=== PATIENT | male | born 1930 | race Caucasian/White ===

== ENCOUNTER 2017-10-09 11:54 | Outpatient (CLI) | payer MEDICARE, OTHER | END 2017-10-09 23:59 | disposition short-term general hospital (02) | LOC: EMS 11:54 | PROVIDERS: ATTEND Surgery | DX: R07.89 Other chest pain (principal) | CPT/HCPCS: A0425; A0427 ==

== ENCOUNTER 2017-10-17 11:40 | Outpatient (CLI) | payer MEDICARE, OTHER ==
[2017-10-17 13:22] LABS: BUN - BLOOD UREA NITROGEN 30 mg/dL (6-20); CARBON DIOXIDE - CO2 34 mmol/L (21-32); CHLORIDE 96 mmol/L (101-111); CREATININE 1.4 mg/dL (0.6-1.2); DIGOXIN 0.6 ng/mL; GFR - MDRD 48 (>89); GLUCOSE 66 mg/dL (70-100); SODIUM 138 mmol/L (135-145)
== END 2017-10-17 11:41 | disposition home or self-care (01) ==
LOC: LAB.R 11:40
PROVIDERS: ATTEND Family Medicine
DX: I50.21 Acute systolic (congestive) heart failure (principal); I48.91 Unspecified atrial fibrillation
CPT/HCPCS: 80048; 80162

== ENCOUNTER 2017-10-26 12:15 | Outpatient (CLI) | payer MEDICARE, OTHER ==
[2017-10-26 17:47] LABS: BILIRUBIN,URINE NEGATIVE (NEGATIVE); GLUCOSE, URINE (UA) NEGATIVE (NEGATIVE); KETONES,URINE (UA) NEGATIVE (NEGATIVE); LEUKOCYTE ESTERASE, URINE MODERATE (NEGATIVE); NITRITE,URINE NEGATIVE (NEGATIVE); OCCULT BLOOD,URINE NEGATIVE (NEGATIVE); PROTEIN,URINE NEGATIVE (NEGATIVE); UROBILINOGEN,URINE 0.2 (NORMAL) E.U./dL (NORMAL)
[2017-10-26 18:03] LABS: CLARITY,URINE CLOUDY (CLEAR)
[2017-10-26 18:16] LABS: BACTERIA,URINE Many /HPF (None Seen); SQUAMOUS EPITHELIAL CELL,UR NONE SEEN (<= Few)
== END 2017-10-26 12:16 | disposition home or self-care (01) ==
LOC: LAB.R 12:15
PROVIDERS: ATTEND Family Medicine
DX: N39.0 Urinary tract infection, site not specified (principal)
CPT/HCPCS: 81001; 81003

== ENCOUNTER 2017-10-31 12:10 | Outpatient (CLI) | payer MEDICARE, OTHER ==
[2017-10-31 13:15] LABS: BILIRUBIN,URINE NEGATIVE (NEGATIVE); GLUCOSE, URINE (UA) NEGATIVE (NEGATIVE); KETONES,URINE (UA) NEGATIVE (NEGATIVE); LEUKOCYTE ESTERASE, URINE LARGE (NEGATIVE); NITRITE,URINE NEGATIVE (NEGATIVE); OCCULT BLOOD,URINE SMALL (NEGATIVE); PROTEIN,URINE TRACE mg/dL (NEGATIVE); UROBILINOGEN,URINE 0.2 (NORMAL) E.U./dL (NORMAL)
[2017-10-31 13:19] LABS: BACTERIA,URINE Moderate /HPF (None Seen); CLARITY,URINE CLOUDY (CLEAR); SQUAMOUS EPITHELIAL CELL,UR NONE SEEN (<= Few)
== END 2017-10-31 12:11 | disposition home or self-care (01) ==
LOC: LAB.R 12:10
PROVIDERS: ATTEND Family Medicine
DX: N39.0 Urinary tract infection, site not specified (principal)
CPT/HCPCS: 81001; 81003; 87077; 87086; 87181

== ENCOUNTER 2018-02-19 08:35 | Outpatient (CLI) | payer MEDICARE, OTHER ==
[2018-02-19 12:22] LABS: CALCIUM 8.9 mg/dL (8.5-10.3); CREATININE 0.9 mg/dL (0.6-1.2)
== END 2018-02-19 08:36 | disposition home or self-care (01) ==
LOC: LAB.F 08:35
PROVIDERS: ATTEND Internal Medicine Cardiovascular Disease
DX: I48.91 Unspecified atrial fibrillation (principal)
CPT/HCPCS: 36415; 80048

== ENCOUNTER 2018-03-17 11:11 | Outpatient (CLI) | payer MEDICARE, OTHER | END 2018-03-17 11:12 | disposition home or self-care (01) | LOC: DI 11:11 | PROVIDERS: ATTEND Internal Medicine Cardiovascular Disease | DX: I50.21 Acute systolic (congestive) heart failure (principal); I08.0 Rheumatic disorders of both mitral and aortic valves; I27.20 Pulmonary hypertension, unspecified; I77.810 Thoracic aortic ectasia | CPT/HCPCS: 93306 ==

== ENCOUNTER 2018-03-25 11:24 | Outpatient (CLI) | payer MEDICARE, OTHER ==
[2018-03-27 15:26] LABS: ALBUMIN 3.6 g/dL (3.8-4.8); ALPHA 1 GLOBULIN 0.4 g/dL (0.2-0.3); ALPHA 2 GLOBULIN 0.8 g/dL (0.5-0.9); BETA 1 GLOBULIN 0.5 g/dL (0.4-0.6); BETA 2 GLOBULIN 0.3 g/dL (0.2-0.5)
== END 2018-03-25 11:25 | disposition home or self-care (01) ==
LOC: LAB 11:24
PROVIDERS: ATTEND Internal Medicine Cardiovascular Disease
DX: I50.21 Acute systolic (congestive) heart failure (principal)
CPT/HCPCS: 36415; 81599; 84155; 84165

== ENCOUNTER 2018-05-05 08:00 | Outpatient (CLI) | payer MEDICARE, OTHER | END 2018-05-05 23:59 | disposition home or self-care (01) | LOC: LAB.R 08:00 | PROVIDERS: ATTEND Internal Medicine Cardiovascular Disease | DX: I50.21 Acute systolic (congestive) heart failure (principal) | CPT/HCPCS: 81599; 82570; 84156; 84166; 86335 ==

== ENCOUNTER 2018-05-05 10:49 | Outpatient (CLI) | payer MEDICARE, OTHER ==
[2018-05-05] MEDS ORDERED: REGADENOSON 0.4 MG/5 ML SYRINGE IVP ONE ×2 (12:21→14:49)
--- NOTE | 2018-05-05 15:26 | Nuclear Medicine Report ---
Reason: CHF, AF Procedure Date: 05/05/2018 Accession Number: [id number] / [id number] Procedure: NM - Myocardial Perfusion STR/RST CPT Code: FULL RESULT: EXAM: SINGLE-ISOTOPE PHARMACOLOGICAL STRESS TEST WITH REGADENOSON. SINGLE-ISOTOPE AND ONE-DAY REST/STRESS MYOCARDIAL PERFUSION SCANS WITH TOMOGRAPHIC IMAGING, QUANTITATIVE ANALYSIS, WALL MOTION ANALYSIS AND CALCULATION OF EJECTION FRACTION. EXAM DATE: 05/05/2018 02:50 PM. CLINICAL HISTORY: CHF, AF. COMPARISON: None available. TECHNIQUE: After the intravenous administration of 9.5 mCi of Tc-99m sestamibi, a rest myocardial perfusion scan was done with tomography. Motion correction was applied when appropriate. After an appropriate delay, pharmacological stress was performed with the infusion of 0.4 mg regadenoson per protocol. According to protocol, 42.3 mCi of Tc-99m sestamibi was injected for stress myocardial perfusion scan. Motion correction was applied when appropriate. Gated tomographic images were obtained for wall motion analysis and computation of left ventricular ejection fraction. FINDINGS: On visual analysis, there is decreased activity in the inferior wall and apex, larger on rest images compared to the stress images. No convincing significant reversible perfusion defects. Computer analysis: Summed stress score 13 Summed rest score 8 Summed difference score 3 Wall motion analysis demonstrates no significant focal wall motion abnormality. The left ventricular end-diastolic volume is 169 cc. The left ventricular end-systolic volume is 99 cc. The left ventricular ejection fraction is calculated to be 41%. IMPRESSION: 1. On visual analysis, defect involving the apex and inferior wall, slightly larger on the rest images compared to the stress images. This could represent diaphragm attenuation artifact versus infarct. No convincing reversible perfusion defects. 2. Abnormal left ventricular ejection fraction of 41%. 3. No significant focal wall motion abnormality. 4. Normal left ventricular cavity size, no change with stress. 5. Based on computer analysis, moderately abnormal exam with mild ischemia. RADIA
--- NOTE | 2018-05-05 16:37 | CARDIAC PROCEDURE NOTE ---
DATE OF SERVICE: 05/05/2018 Physician: Jeanne Thomson MD, LOCATED WITHIN [facility] ORDERING PHYSICIAN: Dr. Blake Henson. INDICATION 1. Congestive heart failure. 2. Atrial fibrillation CARDIAC RISK FACTORS 1. Advanced age. 2. Family history of heart disease. PROCEDURE: After signing informed consent, the patient underwent a Lexiscan pharmaceutical stress test with nuclear myocardial perfusion imaging. Resting heart rate: 71. Peak heart rate: 97 and briefly touched 118. Resting blood pressure: 122/60. Peak blood pressure: 84/50. Recovery blood pressure 128/60. The patient underwent Lexiscan stress test and had brief lightheadedness, flushed feeling, shortness of breath and nausea. The symptoms resolved spontaneously after 5 minutes. RESTING EKG: Atrial fibrillation, left IVCD, LAFB; a PVC and ventricular couplet are seen, non-specific ST-T abnormality in V4 through V6. EKG AT [facility]: No new ST segment or T-wave changes. SUMMARY 1. Abnormal resting EKG. 2. No new changes by EKG criteria on this pharmaceutical stress test. 3. Nuclear images reported separately. TD: 05/05/2018 15:39 MATIAS
== END 2018-05-05 10:50 | disposition home or self-care (01) ==
LOC: DI 10:49
PROVIDERS: ATTEND Internal Medicine Cardiovascular Disease
DX: I50.21 Acute systolic (congestive) heart failure (principal); I48.91 Unspecified atrial fibrillation; Z82.49 Family history of ischemic heart disease and other diseases of the circulatory system; R94.31 Abnormal electrocardiogram [ECG] [EKG]
CPT/HCPCS: 78452; 81599; 82570; 84156; 84166; 86335; 93017; A9500; J2785

== ENCOUNTER 2018-09-27 10:10 | Outpatient (CLI) | payer MEDICARE, OTHER | END 2018-09-27 10:11 | disposition home or self-care (01) | LOC: DI 10:10 | PROVIDERS: ATTEND Internal Medicine Cardiovascular Disease | DX: I50.9 Heart failure, unspecified (principal); I08.0 Rheumatic disorders of both mitral and aortic valves | CPT/HCPCS: 93306 ==

== ENCOUNTER 2020-12-21 15:07 | Outpatient (CLI) | payer MEDICARE, OTHER | END 2020-12-21 15:08 | disposition critical access hospital (66) | LOC: EMS 15:07 | DX: M25.561 Pain in right knee (principal); W01.0XXA Fall on same level from slipping, tripping and stumbling without subsequent striking against object, initial encounter; Y93.89 Activity, other specified; Y92.74 Orchard as the place of occurrence of the external cause | CPT/HCPCS: A0425; A0429 ==

== ENCOUNTER 2020-12-21 15:40 | Emergency (ER) | payer MEDICARE, OTHER ==
[2020-12-21 15:50] VITALS: BP 150/88
--- NOTE | 2020-12-21 15:59 | ED Physician Documentation ---
History of Present Illness - Stated complaint Stated Complaint: FALL - Chief complaint Chief Complaint: Trauma Ext - Additonal information Additional information: 89-year-old male who carries a history of atrial fibrillation (not anticoagula maryam) hypertension presents to the emergency department for evaluation of acute right knee pain. This gentleman reports that he was picking apples and slipped on some rotten apples falling forward onto both of his knees. He had immediate pain in the right knee and an inability to get up. EMS was summoned. Patient did not strike his head. There was no loss of consciousness. He is not complaining of headache, neck pain back pain or pain anywhere other than the right knee. Meds: Lisinopril, metoprolol, Flomax, levothyroxine, digoxin, furosemide, atorvastatin Review of Systems Constitutional: reports: Reviewed and negative Eyes: reports: Reviewed and negative Ears: reports: Reviewed and negative Cardiac: reports: Reviewed and negative Respiratory: reports: Reviewed and negative Musculoskeletal: reports: Joint pain (right knee) PD PAST MEDICAL HISTORY - Past Medical History Cardiovascular: Atrial fibrillation Respiratory: None Neuro: None Endocrine/Autoimmune: HyPOthyroidism GI: GI bleed : None Psych: None Musculoskeletal: None Derm: None - Past Surgical History General: Hiatal hernia repair - Present Medications Home Medications: Ambulatory Orders Medication Instructions Recorded Confirmed Atorvastatin [Lipitor] 40 mg PO DAILY PM 12/24/18 12/24/18 Digoxin [Lanoxin] 125 mcg PO DAILY 12/24/18 12/24/18 Levothyroxine [Synthroid] 50 mcg PO DAILY 12/24/18 12/24/18 Lidocaine Patch 5% [Lidoderm Patch] 1 patch TOP DAILY 12/24/18 12/24/18 Metoprolol Succinate 50 mg PO DAILY 12/24/18 12/24/18 lisinopriL [Lisinopril] 5 mg PO DAILY 12/24/18 12/24/18 - Allergies Allergies/Adverse Reactions: Allergies Allergy/AdvReac Type Severity Reaction Status Date / Time No Known Drug Allergies Allergy Verified 12/21/20 15:48 - Social History Smoking Status: Never smoker PD ED PE EXPANDED - General General: Alert, No acute distress - Cardiac Cardiac: Irregularly irregular, Radial strong equal, Pedal strong equal, Cap refill < 2 sec - Respiratory Respiratory: Clear to ausultation akira. No: Distress, Labored - Derm Derm: Normal color - Extremities Extremities: Right knee (tenderness approximately 2 cm superior to the patella. Unable to extend the right leg at the knee. unable to perform a straight leg raise. Swelling right medial knee. no open sores, lesions) Results - Vitals Vitals: Vital Signs - 24 hr 12/21/20 15:48 Temperature 36.5 C Heart Rate 88 Respiratory 16 Rate Blood Pressure 150/88 H O2 Saturation 98 Oxygen O2 Source Room air - Rads (name of study) right knee Radiology: Final report received, EMP read indepedently (+ patella baja) PD MEDICAL DECISION MAKING - ED course Complexity details: reviewed results, d/w patient, d/w family ED course: 89-year-old gentleman presents emergency department for evaluation of acute right knee pain after he fell while picking apples in his [place]chard. There was no loss of consciousness. He does have a history of atrial fibrillation. He was previously on Eliquis but this has been stopped by his primary care provider. On exam his knee is held in slight flexion but he is unable to straighten the leg or do a positive straight leg exam. He does have point tenderness about 2 cm proximal to the Patella and the x-ray is consistent with a patella Baha confirming a full quadriceps tendon rupture. This case was discussed with Dr. Blanchard on-call with [facility] orthopedics. At this time he should be placed in a knee immobilizer and made nonweightbearing. Due to safety concerns, he was given a walker, not crutches. He was ambulated adequately in the [place]. No falls. Outpatient surgery should be considered. Dr. Blanchard tells me that most [facility] pit[facility] are deferring nonemergent surgery secondary to the Covid pandemic. This gentleman does not need emergent surgery at this time. This case was discussed with licensed clinical social worker. She has arranged with the lift assist to help get the patient home. Patient was placed in a knee immobilizer and will be trialed on crutches or a walker. We have also arranged to help the family get a wheelchair. Departure - Departure Disposition: 01 Home, Self Care Clinical Impression: Traumatic rupture of right quadriceps tendon Qualifiers: Encounter type: initial encounter Qualified Code(s): S76.111A - Strain of right quadriceps muscle, fascia and tendon, initial encounter Condition: Stable Record reviewed to determine appropriate education?: Yes Follow-Up: Dennis Castaneda MD [Provider Admit Priv/Credential] - Robert Mercado MD [Primary Care Provider] - Comments: Radu you were seen in the ER for knee pain after a fall. Unfortunately you have a quadriceps tendon rupture. This is the tendon that connects the patella to the quadriceps muscle. Because this is ruptured you cannot extend your leg. This case was discussed with orthopedic surgeon Dr. Blanchard at [facility]. He would not recommend emergent surgery at this time. Surgery is typically delayed for 1 to 2 weeks. You have been placed in a knee immobilizer to help keep your leg straight. We are offering you assistance with crutches, and/or a walker and wheelchair. Tylenol should be sufficient to help manage the pain. Please discuss this ED visit with Dr. Mercado. He may need to help facilitate referral to Dr. Collazo our orthopedic surgeon on-call. If there are other orthopedic surgeons you prefer to work with you can also ask for referral to them.
--- NOTE | 2020-12-21 16:30 | XRAY Report ---
PROCEDURE: Knee 4 View RT INDICATIONS: Trauma TECHNIQUE: 3 views of the right knee(s) were acquired. COMPARISON: None. FINDINGS: Bones: No fractures or dislocations. Mild to moderate tricompartmental osteoarthritis is seen more p rominent in medial femoral tibial compartment. No suspicious bony lesions. Soft tissues: There is small to moderate suprapatellar joint effusion. No suspicious soft tissue dinh cifications. IMPRESSION: Mild to moderate tricompartment osteoarthritis and small to moderate suprapatellar joint effusion. No acute fracture or dislocation. Reviewed by: Louis Ballesteros MD on 12/21/2020 4:29 PM PDT Approved by: Louis Ballesteros MD on 12/21/2020 4:29 PM PDT Station ID: [id number]
== END 2020-12-21 17:55 | disposition home or self-care (01) ==
LOC: EDUNIT# → ED 15:40
DX: S76.111A Strain of right quadriceps muscle, fascia and tendon, initial encounter (principal); W01.0XXA Fall on same level from slipping, tripping and stumbling without subsequent striking against object, initial encounter; Y93.89 Activity, other specified; Y92.74 Orchard as the place of occurrence of the external cause; M17.11 Unilateral primary osteoarthritis, right knee; I10 Essential (primary) hypertension; Z86.79 Personal history of other diseases of the circulatory system
CPT/HCPCS: 99282; 99283

== ENCOUNTER 2020-12-26 09:47 | Inpatient (IN) | payer MEDICARE, OTHER ==
[~2020-12-26 09:47] MED LIST: MIDAZOLAM 2 MG/2 ML VIAL ONE; PROPOFOL 200 MG/20 ML VIAL IVP ONE; fentaNYL 100 MCG/2 ML VIAL ONE
[2020-12-26] MEDS ORDERED: CEFAZOLIN SODIUM IN 0.9 % NACL 2 GM/100 ML BAG IV ONE (09:58)
[2020-12-26] MEDS ORDERED: LACTATED RINGERS 1,000 ML IV ONE ×3 (10:17→14:11)
[2020-12-26] MEDS ORDERED: LIDOCAINE-MPF 2% 5 ML VIAL ONE (10:55)
[2020-12-26] MEDS ORDERED: PROPOFOL 200 MG/20 ML VIAL IVP ONE (10:55)
[2020-12-26] MEDS ORDERED: DEXAMETHASONE 4 MG/ML VIAL ONE (10:56)
[2020-12-26] MEDS ORDERED: ONDANSETRON 4 MG/2 ML VIAL ONE (10:56)
[2020-12-26] MEDS ORDERED: fentaNYL 100 MCG/2 ML VIAL ONE (10:56)
[2020-12-26] MEDS ORDERED: ROPIVACAINE 0.5% PF 20 ML AMPULE ONE (11:28)
--- NOTE | 2020-12-26 12:04 | ANESTHESIA ---
Pre-Anesthesia VS, & Labs - Diagnosis right quadricepts tendon rupture - Procedure Quadricep tendon repair, right Vital Signs: Temp Pulse Resp BP Pulse Ox 36.3 C L 49 L 16 102/66 94 12/26/20 10:18 12/26/20 10:18 12/26/20 10:18 12/26/20 10:18 12/26/20 10:18 Height: 6 ft Weight (kg): 86 kg Body Mass Index: 25.7 BMI Classification: Overweight - NPO >8 hours - Lab Results Lab results reviewed: Yes Home Medications and Allergies Home Medications: Ambulatory Orders Tamsulosin [Flomax] 0.8 mg PO DAILY 12/25/20 Atorvastatin [Lipitor] 40 mg PO DAILY PM 12/24/18 Digoxin [Lanoxin] 125 mcg PO DAILY 12/24/18 Levothyroxine [Synthroid] 50 mcg PO DAILY 12/24/18 Metoprolol Succinate 50 mg PO DAILY 12/24/18 lisinopriL [Lisinopril] 5 mg PO DAILY 12/24/18 Tamsulosin [Flomax] 0.8 mg PO DAILY 12/25/20 Allergies/Adverse Reactions: Allergies Allergy/AdvReac Type Severity Reaction Status Date / Time No Known Drug Allergies Allergy Verified 12/25/20 13:16 Anes History & Medical History - Anesthetic History Anesthesia Complications: reports: No previous complications Family history of Anesthesia Complications: Denies Family history of Malignant Hyperthermia: Denies - Medical History Cardiovascular: reports: Atrial fibrillation Pulmonary: reports: Other Gastrointestinal: reports: GI bleed, Other Urinary: reports: Benign prostate hypertrophy, Retention Neuro: reports: None, Other (memory loss) Musculoskeletal: reports: Other Endocrine/Autoimmune: reports: HyPOthyroidism Blood Disorders: reports: Anemia Skin: reports: Other Smoking Status: Never smoker - Surgical History General: reports: Hiatal hernia repair Dermatologic: reports: Skin cancer surgery Exam General: Alert, Oriented x3, Cooperative, No acute distress Dental: WNL Mouth Openin Fingerbreadth Neck Mobility: Normal Mallampati classification: II Respiratory: Lungs clear, Normal breath sounds, No respiratory distress, No accessory muscle use Cardiovascular: Regular rate, Normal S1, Normal S2, No murmurs Plan Anesthesia Type: General, Spinal, Femoral Block Regional Block: Per Surgeon's request for Post Op pain control Consent for Procedure(s) Verified and Reviewed: Yes Code Status: Attempt Resuscitation ASA classification: 3-Severe systemic disease Is this case an emergency?: No
[2020-12-26] MEDS ORDERED: PHENYLEPHRINE 10 MG/ML VIAL ONE (12:44)
[2020-12-26] MEDS ORDERED: fentaNYL 100 MCG/2 ML VIAL IVP PRN (12:52)
[2020-12-26] MEDS ORDERED: ONDANSETRON 4 MG/2 ML VIAL IVP PRN ×2 (12:52→14:18)
[2020-12-26] MEDS ORDERED: NALOXONE 0.4 MG/ML VIAL IVP PRN (12:52)
[2020-12-26] MEDS ORDERED: HYDROmorphone 0.5 MG/0.5 ML SYRINGE IVP PRN (12:52)
[2020-12-26] MEDS ORDERED: ePHEDrine 50 MG/ML VIAL IVP PRN (12:52)
[2020-12-26] MEDS ORDERED: METOCLOPRAMIDE 10 MG/2 ML VIAL IVP PRN (12:52)
[2020-12-26] MEDS ORDERED: MORPHINE 2 MG/ML CARPUJECT IVP PRN (12:52)
[2020-12-26] MEDS ORDERED: ATROPINE ABBOJECT 1 MG/10 ML SYRINGE IVP PRN (12:52)
[2020-12-26] MEDS ORDERED: VASOPRESSIN 20 UNIT/ML VIAL ONE (12:53)
[2020-12-26] MEDS ORDERED: LACTATED RINGERS 1,000 ML IV SCH (13:00)
--- NOTE | 2020-12-26 13:27 | OPERATIVE REPORT ---
Operative Report - General Procedure Date: 12/26/20 Planned Procedure: Repair of quadriceps tendon rupture right knee Pre-Op Diagnosis: Complete quadriceps tendon rupture right knee Procedure Performed: Repair of quadriceps tendon rupture right knee Post Op Diagnosis: Same as preoperative diagnosis - Procedure Note Primary Surgeon: Dennis Castaneda MD Secondary Surgeon: Boni GUTIERREZ Anesthesia Provider: Davon Johnson CRNA Anesthesia Technique: Regional block, Spinal Estimated Blood Loss (mL): 50 Indications: Is an ambulatory 89-year-old gentleman in relatively good health. He has a history of atrial fibrillation but is not being anticoagulated. He took a fall walking in his apple [place] when he accidentally stepped on apple. He was seen in the emergency room and given a universal knee immobilizer, seen as outpatient in orthopedic clinic where he had evidence of a complete quadriceps tendon defect, no active knee extension, flexion intact. X-rays were normal to right knee. His neurovascular status is intact. He has fallen since the original injury at home. He lives with his but both do not have the capacity to help each other to a great degree in the event of inability to function normally. Findings: There was complete disruption of the quadriceps tendon just above the patella with rupture of the medial and lateral retinaculum as well. There was some hematoma at the rupture site. There is no other intra-articular injury and the knee was grossly stable on stress testing. Complications: none - Other Other Information/Narrative: The patient was brought to the operating room. He is given a femoral nerve block, lumbar spinal anesthesia by our application support manager. The patient was placed in a supine position. The right lower extremity was prepped and draped in sterile manner in the usual fashion. A timeout procedure was performed by the entire operating room team and all were in agreement. A pneumatic tourniquet had been applied to proximal right thigh but was not utilized during surgery. A midline, anterior, longitudinal incision was made over the quadriceps tendon and carried distally below the inferior pole of the patella. The hematoma fluid was almost immediately encountered over the rupture site. The hematoma fluid was evacuated with saline lavage. The edge of the quadriceps tendon rupture was freshened with a scalpel blade. The superior pole of the patella was gently debrided with a rongeur to create light bleeding cancellous bone. Arthrex fiber tape suture was introduced into the quadriceps tendon using a locking suture technique. A four core suture of the quadriceps tendon was performed with four strands exiting the distal end of the quadriceps tendon. A Beath drill pin was then utilized to make three holes in the patella: Medial, central and lateral and sutures were taken through the tip of the Beath pin and brought distally below the inferior pole of the right patella. The 2 sutures in the central hole were then taken to each of this suture strands from the more peripheral holes. The sutures were tensioned with the knee in full extension and tied providing excellent fixation of the quadriceps. In addition, #1 strata fix suture was then used to repair the medial and lateral retinaculum. This provided for very secure repair with minimal tension at 40 degrees flexion. The wound was thoroughly irrigated. The subcutaneous tissue was closed with two oh strata fix, subcuticular closure with 3-0 Monocryl, Dermabond, silver impregnated dressing and long-leg fiberglass posterior splint, well-padded, to provide very slight knee flexion to right knee. He tolerated the procedure well. A physician laboratory assistant was utilized help with exposure, protection of vital structures, facilitate repair, wound closure and splint application. He received 2 g of Ancef intravenously.
[2020-12-26] MEDS ORDERED: ACETAMINOPHEN 325 MG TABLET PO PRN ×2 (14:03→14:18)
[2020-12-26] MEDS ORDERED: traMADol 50 MG TABLET PO PRN (14:03)
[2020-12-26] MEDS ORDERED: SODIUM CHLORIDE FLUSH 0.9% 10 ML SYRINGE IVP PRN ×2 (14:03→14:18)
[2020-12-26] MEDS ORDERED: PROCHLORPERAZINE 10 MG/2 ML VIAL IVP PRN (14:18)
[2020-12-26] MEDS ORDERED: ACETAMINOPHEN 1,000 MG/100 ML 100 ML IV PRN (14:18)
[2020-12-26] MEDS ORDERED: SODIUM CHLORIDE 0.9% 1,000 ML IV SCH (15:00)
--- NOTE | 2020-12-26 15:10 | ANESTHESIA POST OP EVALUATION ---
Anesthesia Post Eval - Post Anesthesia Eval Vitals: Last Vital Signs Temp 36.3 C L 12/26/20 14:36 Pulse 74 12/26/20 14:36 Resp 11 L 12/26/20 14:36 BP 102/56 L 12/26/20 14:36 Pulse Ox 99 12/26/20 14:36 CV Function Including HR & BP: Stable Pain Control: Satisfactory Nausea & Vomiting: Negative Mental Status: Baseline Respiratory Status: Airway Patent Hydration Status: Satisfactory Anesthesia Complications: None
--- NOTE | 2020-12-26 15:16 | PHARMACY PROGRESS NOTE ---
- Best Possible Medication History Admit Date and Time: 12/26/20 1403 Processed by: Nursing Medication History completed: Yes As the person ultimately responsible for medication therapy, providers are able to order a medication from an existing home medication list in [facility] via the "Reconcile Routine" prior to Confirmation of that medication by applications support lead. Such practice is discouraged except when the physician, in their clinical judgment, deems that a medical need exists for a medication without regard to previous use.
--- NOTE | 2020-12-26 15:53 | CONSULTATION NOTE ---
Referring Provider Name of Referring Provider:: Dr. Prado Consult Date: 12/26/20 Chief Complaint - Chief Complaint Chief Complaint: fall, right knee injury History of Present Illness - Admitted From Admitted From:: medical floor - History Obtained From Records Reviewed: [facility] History obtained from: pt Exam Limitations: no - History of Present Illness HPI Comment/Other: This is a 89-years old male with a past medical history significant for atrial fibrillation without anticoagulation, hypertension, hyperlipidemia, BPH, hypothyroidism. pt report he had a fall. His right knee directly hit the ground and injury to the right knee. he denies Loss of consciousness. He denies chest pain, palpitation. Orthopedics surgeon did Right knee quadriceps tendon repair for patient. Medical team was asked to consult for medical management. History - Past Medical History Cardiovascular: reports: Atrial fibrillation Respiratory: reports: Other Neuro: reports: None, Other (memory loss) Endocrine/Autoimmune: reports: HyPOthyroidism GI: reports: GI bleed, Other : reports: Benign prostate hypertrophy, Retention HEENT: reports: Chronic hearing loss Psych: reports: None Musculoskeletal: reports: Other Derm: reports: Other MRSA Hx?: No - Past Surgical History General: reports: Hiatal hernia repair Derm: reports: Skin cancer surgery Meds/Allgy - Home Medications Home Medications: Ambulatory Orders Medication Instructions Recorded Confirmed Atorvastatin [Lipitor] 40 mg PO DAILY PM 12/24/18 12/25/20 Digoxin [Lanoxin] 125 mcg PO DAILY 12/24/18 12/25/20 Levothyroxine [Synthroid] 50 mcg PO DAILY 12/24/18 12/25/20 Metoprolol Succinate 50 mg PO DAILY 12/24/18 12/25/20 lisinopriL [Lisinopril] 5 mg PO DAILY 12/24/18 12/25/20 Tamsulosin [Flomax] 0.8 mg PO DAILY 12/25/20 12/25/20 - Allergies Allergies/Adverse Reactions: Allergies Allergy/AdvReac Type Severity Reaction Status Date / Time No Known Drug Allergies Allergy Verified 12/25/20 13:16 Review of Systems - Constitutional Constitutional: denies: Fatigue, Fever, Chills - Eyes Eyes: denies: Pain, Field loss, Vision loss - Ears, Nose & Throat Ears, Nose & Throat: denies: Ear pain, Nosebleeds, Bleeding gums - Cardiovascular Cariovascular: denies: Palpitations, Chest pain, Syncope, Exertional dyspnea, Decr. exercise tolerance - Respiratory Respiratory: denies: Cough, Sputum production, SOB at rest, SOB with exertion - Gastrointestinal Gastrointestinal: denies: Abdominal pain, Diarrhea, Nausea, Vomiting - Genitourinary Genitourinary: denies: Dysuria - Musculoskeletal Musculoskeletal: reports: Limited range of motion - Integumentary Integumentary: denies: Rash - Neurological Neurological: denies: General weakness, Focal weakness, Headache, Seizures, Slurred speech - Psychiatric Psychiatric: denies: Depression Exam - Vital Signs Vital Signs: Vital Signs x48h Temp Pulse Pulse Resp BP BP Pulse Ox 12/26/20 14:50 36.1 C L 63 18 115/54 L 100 12/26/20 14:36 36.3 C L 74 11 L 102/56 L 99 12/26/20 14:31 76 12 112/60 98 12/26/20 14:28 75 14 113/55 L 98 12/26/20 14:26 71 16 73/54 L 99 12/26/20 14:20 71 20 79/59 L 93 12/26/20 14:16 36.3 C L 79 10 L 78/63 L 95 12/26/20 14:10 76 26 H 85/60 L 96 12/26/20 14:06 81 20 86/57 L 96 12/26/20 14:01 78 21 84/53 L 93 12/26/20 13:56 82 20 82/65 L 95 12/26/20 13:51 36.5 C 86 18 82/62 L 98 12/26/20 10:18 36.3 C L 49 L 16 102/66 94 - Physical Exam General Appearance: positive: No acute distress, Alert. negative: Lethargic Eyes Bilateral: positive: Normal inspection, PERRL, No lid inflammation ENT: positive: ENT inspection nml, No signs of dehydration. negative: Purulent nasal drainage Neck: positive: Nml inspection, Trachea midline. negative: Thyromegaly, Tracheal deviation Respiratory: positive: Chest non-tender, No respiratory distress, Breath sounds nml. negative: Wheezes Cardiovascular: positive: Regular rate & rhythm, No murmur. negative: Tachycardia, Bradycardia, Systolic murmur, Diastolic murmur Peripheral Pulses: positive: 2+ Abdomen: positive: Non-tender, Nml bowel sounds, No distention. negative: Tenderness Back: positive: Nml inspection Skin: positive: Color nml, Warm, Dry. negative: Cyanosis Extremities: positive: Non-tender, Other (intact neurovascular examination at right Lower extremity). negative: Calf tenderness Neurologic/Psychiatric: positive: Oriented x3, Sensation nml, Mood/affect nml. negative: Weakness, Sensory loss, Facial droop, Slurred/abnml speech, Depressed mood/affect Conclusion/Plan - Problem List (1) Traumatic rupture of right quadriceps tendon Conclusion/Plan: followup with orthopedics, continue pain control, aspirin for DVT Prophylaxis, PT/OT Qualifiers: Encounter type: initial encounter Qualified Code(s): S76.111A - Strain of right quadriceps muscle, fascia and tendon, initial encounter (2) Afib Conclusion/Plan: pt's heart rate is controlled now, resume home Digoxin, and metoprolol. We will check digoxin serum concentration, add tele monitor. (3) HTN (hypertension) Conclusion/Plan: pt had low BP at operation room but his BP remain in normal arrange in medical floor, we will closely monitor pt's vital signs, resume his BP meds on tomorrow. (4) Hypothyroidism Conclusion/Plan: will check TSH, resume home Synthroid (5) BPH (benign prostatic hyperplasia) Conclusion/Plan: we will resume home Flomax - Lab Results Lab results reviewed: Yes Fish Bones: 12/26/20 16:04 12/26/20 16:04
[2020-12-26 16:09] LABS: BASOPHILS # (AUTO) 0.1 10^3/uL (0.0-0.1); BASOPHILS % (AUTO) 0.6 %; EOSINOPHILS # (AUTO) 0.1 10^3/uL (0.0-0.7); EOSINOPHILS % (AUTO) 1.6 %; HCT - HEMATOCRIT 39.8 % (42.0-52.0); HGB - HEMOGLOBIN 12.5 g/dL (14.0-18.0); LYMPHOCYTES # (AUTO) 1.3 10^3/uL (1.5-3.5); LYMPHOCYTES % (AUTO) 15.8 %; MEAN CORPUSCULAR HEMOGLOBIN 32.8 pg (27.0-31.0); MEAN CORPUSCULAR HGB CONC 31.4 g/dL (32.0-36.0); MEAN CORPUSCULAR VOLUME 104.5 fL (80.0-94.0); MEAN PLATELET VOLUME 10.5 fL (7.4-11.4); MONOCYTES # (AUTO) 0.6 10^3/uL (0.0-1.0); NEUTROPHILS # (AUTO) 5.9 10^3/uL (1.5-6.6); NEUTROPHILS % (AUTO) 73.4 %; PLT - PLATELET COUNT 222 10^3/uL (130-450); RED BLOOD COUNT 3.81 10^6/uL (4.70-6.10); RED CELL DISTRIBUTION WIDTH 13.2 % (12.0-15.0)
[2020-12-26] MEDS: SODIUM CHLORIDE FLUSH 0.9% 10 ML SYRINGE IVP SCH ×2 (16:09)
[2020-12-26 16:20] LABS: CALCIUM 8.3 mg/dL (8.5-10.3); CREATININE 0.9 mg/dL (0.6-1.2); POTASSIUM 4.2 mmol/L (3.5-5.0)
[2020-12-26 18:53] LABS: CORONAVIRUS 229E-RESP PCR NOT DETECTED; CORONAVIRUS HKU1-RESP PCR NOT DETECTED; CORONAVIRUS NL63-RESP PCR NOT DETECTED; CORONAVIRUS OC43-RESP PCR NOT DETECTED; HUMAN METAPNEUMOVIRUS NOT DETECTED; RHINOVIRUS/ENTEROVIRUS NOT DETECTED; SARS-CoV-2 -RESP PCR PANEL NOT DETECTED
[2020-12-26 18:54] LABS: B. PARAPERTUSSIS- RESP PCR PAN NOT DETECTED; B. PERTUSSIS- RESP PCR PANEL NOT DETECTED; C. PNEUMONIAE- RESP PCR PANEL NOT DETECTED; INFLUENZA A- RESP PCR PANEL NOT DETECTED; INFLUENZA B - RESP PCR PANEL NOT DETECTED; M. PNEUMONIAE- RESP PCR PANEL NOT DETECTED; PARAINFLUENZA VIRUS 1 NOT DETECTED; PARAINFLUENZA VIRUS 2 NOT DETECTED; PARAINFLUENZA VIRUS 3 NOT DETECTED; PARAINFLUENZA VIRUS 4 NOT DETECTED; RSV- RESP PCR PANEL NOT DETECTED
[2020-12-26] MEDS: ATORVASTATIN 40 MG TABLET PO SCH (21:43)
[2020-12-26] MEDS: ASPIRIN CHEW 81 MG TABLET PO SCH (21:43)
[2020-12-26] MEDS: CEFAZOLIN SODIUM IN 0.9 % NACL 2 GM/100 ML BAG IV SCH (21:46)
[2020-12-26] MEDS ORDERED: ceFAZolin 2 GM in SODIUM CHLORIDE 0.9% 100ML 100 ML IV SCH (22:00)
[2020-12-27] MEDS: SODIUM CHLORIDE FLUSH 0.9% 10 ML SYRINGE IVP SCH ×6 (00:35→17:15)
[2020-12-27] MEDS: traMADol 50 MG TABLET PO PRN ×3 (00:51→11:11)
[2020-12-27] MEDS: IBUPROFEN 600 MG TABLET PO PRN ×3 (00:51→20:38)
[2020-12-27 06:03] LABS: BASOPHILS # (AUTO) 0.1 10^3/uL (0.0-0.1); BASOPHILS % (AUTO) 0.8 %; EOSINOPHILS # (AUTO) 0.1 10^3/uL (0.0-0.7); EOSINOPHILS % (AUTO) 1.4 %; HCT - HEMATOCRIT 34.2 % (42.0-52.0); HGB - HEMOGLOBIN 11.5 g/dL (14.0-18.0); LYMPHOCYTES # (AUTO) 1.2 10^3/uL (1.5-3.5); LYMPHOCYTES % (AUTO) 15.5 %; MEAN CORPUSCULAR HEMOGLOBIN 34.8 pg (27.0-31.0); MEAN CORPUSCULAR HGB CONC 33.6 g/dL (32.0-36.0); MEAN CORPUSCULAR VOLUME 103.6 fL (80.0-94.0); MEAN PLATELET VOLUME 10.7 fL (7.4-11.4); NEUTROPHILS # (AUTO) 5.4 10^3/uL (1.5-6.6); NEUTROPHILS % (AUTO) 68.7 %; PLT - PLATELET COUNT 233 10^3/uL (130-450); RED CELL DISTRIBUTION WIDTH 13.2 % (12.0-15.0); WHITE BLOOD COUNT 7.9 x10^3/uL (4.8-10.8)
[2020-12-27 06:13] LABS: POTASSIUM 4.1 mmol/L (3.5-5.0)
[2020-12-27 06:14] LABS: CALCIUM 8.1 mg/dL (8.5-10.3); CREATININE 0.9 mg/dL (0.6-1.2)
[2020-12-27] MEDS: LEVOTHYROXINE 25 MCG TABLET PO SCH (07:03)
[2020-12-27] MEDS: CEFAZOLIN SODIUM IN 0.9 % NACL 2 GM/100 ML BAG IV SCH (07:35)
[2020-12-27] MEDS ORDERED: METOPROLOL SUCCINATE 50 MG TABLET PO SCH (09:00)
[2020-12-27] MEDS ORDERED: TAMSULOSIN 0.4 MG CAPSULE PO SCH (09:00)
[2020-12-27] MEDS: ASPIRIN CHEW 81 MG TABLET PO SCH ×2 (09:25→20:37)
[2020-12-27] MEDS: DIGOXIN 125 MCG TABLET PO SCH (09:26)
--- NOTE | 2020-12-27 11:45 | PROVIDER PROGRESS NOTE ---
Subjective - General Admit Date: 12/26/20 Procedure Date: 12/26/20 Post Op Days: 1 Procedure Performed: Right quadriceps tendon repair - Review of Systems Wound/Incisions: positive: Dressing dry and intact (Patient is an 89-year-old male who is following up postop day 1 right quad tendon repair. Patient has a history of hypothyroidism and assuming atrial fibrillation, patient has much confusion at baseline is a poor historian.Patient shows no signs or symptoms of infection. He is nonweightbearing) - Other Other Information/Narrative: Patient is an 89-year-old male who is following up postop day 1 right quad tendon repair. Patient has a history of hypothyroidism and assuming atrial fibrillation, patient has much confusion at baseline is a poor historian.Patient shows no signs or symptoms of infection. He is nonweightbearing And is to remain in his posterior splint until his first follow-up appointment.Patient is to receive PT OT while in the hospital the plan is for him to stay 2 midnights so social work placement in a snf facility for further PT OT. Patient lives at home with his infirmed Objective - Patient Data Vital Signs: Vital Signs x48h Temp Pulse Resp BP Pulse Ox 12/27/20 11:06 36.5 C 82 17 118/60 95 12/27/20 08:02 36.5 C 76 16 105/51 L 95 12/27/20 05:00 36.5 C 62 18 105/54 L 94 Weight: Weight 12/25/20 12/26/20 12/27/20 23:59 23:59 23:59 Weight (kg) 86 kg Intake & Output: Intake and Output Totals x24h 12/25/20 12/26/20 12/27/20 23:59 23:59 23:59 Intake Total 1231.667 778.333 Output Total 125 350 Balance 1106.667 428.333 - Lab Results Lab Results: 12/27/20 05:13 12/27/20 05:13 Other Lab Results: Lab Results x24hrs 12/27/20 12/27/20 12/26/20 Range/Units 05:13 05:13 17:45 WBC 7.9 (4.8-10.8) x10^3/uL RBC 3.30 L (4.70-6.10) 10^6/uL Hgb 11.5 L (14.0-18.0) g/dL Hct 34.2 L (42.0-52.0) % MCV 103.6 H (80.0-94.0) fL MCH 34.8 H (27.0-31.0) pg MCHC 33.6 (32.0-36.0) g/dL RDW 13.2 (12.0-15.0) % Plt Count 233 (130-450) 10^3/uL MPV 10.7 (7.4-11.4) fL Neut # (Auto) 5.4 (1.5-6.6) 10^3/uL Lymph # (Auto) 1.2 L (1.5-3.5) 10^3/uL [place] # (Auto) 1.0 (0.0-1.0) 10^3/uL Eos # (Auto) 0.1 (0.0-0.7) 10^3/uL Baso # (Auto) 0.1 (0.0-0.1) 10^3/uL Absolute Nucleated RBC 0.00 x10^3/uL Nucleated RBC % 0.0 /100WBC Sodium 140 (135-145) mmol/L Potassium 4.1 (3.5-5.0) mmol/L Chloride 106 (101-111) mmol/L Carbon Dioxide 27 (21-32) mmol/L Anion Gap 7.0 (6-13) BUN 15 (6-20) mg/dL Creatinine 0.9 (0.6-1.2) mg/dL Estimated GFR (MDRD) 79 L (>89) Glucose 118 H (70-100) mg/dL Calcium 8.1 L (8.5-10.3) mg/dL TSH (0.34-5.60) uIU/mL Nasal Adenovirus (PCR) NOT DETECTED Nasal B. parapertussis DNA (PCR) NOT DETECTED Nasal Coronavir 229E PCR NOT DETECTED Nasal Coronavir HKU1 PCR NOT DETECTED Nasal Coronavir NL63 PCR NOT DETECTED Nasal Coronavir OC43 PCR NOT DETECTED Nasal Enterovir/Rhinovir PCR NOT DETECTED Nasal Influenza B PCR NOT DETECTED Nasal Influenza A PCR NOT DETECTED Nasal Parainfluen 1 PCR NOT DETECTED Nasal Parainfluen 2 PCR NOT DETECTED Nasal Parainfluen 3 PCR NOT DETECTED Nasal Parainfluen 4 PCR NOT DETECTED Nasal RSV (PCR) NOT DETECTED Nasal B.pertussis DNA PCR NOT DETECTED Nasal C.pneumoniae (PCR) NOT DETECTED Bang Human Metapneumo PCR NOT DETECTED Nasal M.pneumoniae (PCR) NOT DETECTED Nasal SARS-CoV-2 (PCR) NOT DETECTED Ref Lab Test Result 12/26/20 12/26/20 12/26/20 Range/Units 16:04 16:04 16:04 WBC (4.8-10.8) x10^3/uL RBC (4.70-6.10) 10^6/uL Hgb (14.0-18.0) g/dL Hct (42.0-52.0) % MCV (80.0-94.0) fL MCH (27.0-31.0) pg MCHC (32.0-36.0) g/dL RDW (12.0-15.0) % Plt Count (130-450) 10^3/uL MPV (7.4-11.4) fL Neut # (Auto) (1.5-6.6) 10^3/uL Lymph # (Auto) (1.5-3.5) 10^3/uL [place] # (Auto) (0.0-1.0) 10^3/uL Eos # (Auto) (0.0-0.7) 10^3/uL Baso # (Auto) (0.0-0.1) 10^3/uL Absolute Nucleated RBC x10^3/uL Nucleated RBC % /100WBC Sodium 137 (135-145) mmol/L Potassium 4.2 (3.5-5.0) mmol/L Chloride 101 (101-111) mmol/L Carbon Dioxide 28 (21-32) mmol/L Anion Gap 8.0 (6-13) BUN 17 (6-20) mg/dL Creatinine 0.9 (0.6-1.2) mg/dL Estimated GFR (MDRD) 79 L (>89) Glucose 112 H (70-100) mg/dL Calcium 8.3 L (8.5-10.3) mg/dL TSH 3.77 (0.34-5.60) uIU/mL Nasal Adenovirus (PCR) Nasal B. parapertussis DNA (PCR) Nasal Coronavir 229E PCR Nasal Coronavir HKU1 PCR Nasal Coronavir NL63 PCR Nasal Coronavir OC43 PCR Nasal Enterovir/Rhinovir PCR Nasal Influenza B PCR Nasal Influenza A PCR Nasal Parainfluen 1 PCR Nasal Parainfluen 2 PCR Nasal Parainfluen 3 PCR Nasal Parainfluen 4 PCR Nasal RSV (PCR) Nasal B.pertussis DNA PCR Nasal C.pneumoniae (PCR) Bang Human Metapneumo PCR Nasal M.pneumoniae (PCR) Nasal SARS-CoV-2 (PCR) Ref Lab Test Result REPORT 12/26/20 Range/Units 16:04 WBC 8.0 (4.8-10.8) x10^3/uL RBC 3.81 L (4.70-6.10) 10^6/uL Hgb 12.5 L (14.0-18.0) g/dL Hct 39.8 L (42.0-52.0) % MCV 104.5 H (80.0-94.0) fL MCH 32.8 H (27.0-31.0) pg MCHC 31.4 L (32.0-36.0) g/dL RDW 13.2 (12.0-15.0) % Plt Count 222 (130-450) 10^3/uL MPV 10.5 (7.4-11.4) fL Neut # (Auto) 5.9 (1.5-6.6) 10^3/uL Lymph # (Auto) 1.3 L (1.5-3.5) 10^3/uL [place] # (Auto) 0.6 (0.0-1.0) 10^3/uL Eos # (Auto) 0.1 (0.0-0.7) 10^3/uL Baso # (Auto) 0.1 (0.0-0.1) 10^3/uL Absolute Nucleated RBC 0.00 x10^3/uL Nucleated RBC % 0.0 /100WBC Sodium (135-145) mmol/L Potassium (3.5-5.0) mmol/L Chloride (101-111) mmol/L Carbon Dioxide (21-32) mmol/L Anion Gap (6-13) BUN (6-20) mg/dL Creatinine (0.6-1.2) mg/dL Estimated GFR (MDRD) (>89) Glucose (70-100) mg/dL Calcium (8.5-10.3) mg/dL TSH (0.34-5.60) uIU/mL Nasal Adenovirus (PCR) Nasal B. parapertussis DNA (PCR) Nasal Coronavir 229E PCR Nasal Coronavir HKU1 PCR Nasal Coronavir NL63 PCR Nasal Coronavir OC43 PCR Nasal Enterovir/Rhinovir PCR Nasal Influenza B PCR Nasal Influenza A PCR Nasal Parainfluen 1 PCR Nasal Parainfluen 2 PCR Nasal Parainfluen 3 PCR Nasal Parainfluen 4 PCR Nasal RSV (PCR) Nasal B.pertussis DNA PCR Nasal C.pneumoniae (PCR) [place] Human Metapneumo PCR Nasal M.pneumoniae (PCR) Nasal SARS-CoV-2 (PCR) Ref Lab Test Result - Current Medications Current Medications: Current Medications Generic Name Dose Route Start Last Admin Trade Name Freq PRN Reason Stop Dose Admin Acetaminophen 650 - 975 mg 12/26/20 14:18 12/27/20 07:03 Acetaminophen 325 Mg Tablet PO 650 mg Q4HR PRN Administration PAIN Aspirin 81 mg 12/26/20 21:00 12/27/20 09:25 Aspirin Chew 81 Mg Tablet PO 81 mg BID JUANA Administration Atorvastatin Calcium 40 mg 12/26/20 21:00 12/26/20 21:43 Atorvastatin 40 Mg Tablet PO 40 mg QPM JUANA Administration Digoxin 125 mcg 12/27/20 09:00 12/27/20 09:26 Digoxin 125 Mcg Tablet PO 125 mcg DAILY JUANA Administration Ibuprofen 600 mg 12/26/20 14:03 12/27/20 07:03 Ibuprofen 600 Mg Tablet PO 600 mg Q6HR PRN Administration Pain 1 to 4 Levothyroxine Sodium 50 mcg 12/27/20 07:00 12/27/20 07:03 Levothyroxine 25 Mcg Tablet PO 50 mcg QDAC JUANA Administration Metoprolol Succinate 50 mg 12/27/20 09:00 12/27/20 09:26 Metoprolol Succinate 50 Mg Tablet PO Not Given DAILY JUANA Sodium Chloride 10 ml 12/26/20 17:00 12/27/20 07:35 Sodium Chloride Flush 0.9% 10 Ml Syringe IVP 10 ml 0100,0900,1700 JUANA Administration Sodium Chloride 10 ml 12/26/20 17:00 12/27/20 09:26 Sodium Chloride Flush 0.9% 10 Ml Syringe IVP 10 ml 0100,0900,1700 JUANA Administration Tamsulosin HCl 0.8 mg 12/27/20 09:00 12/27/20 09:26 Tamsulosin 0.4 Mg Capsule PO 0.8 mg DAILY JUANA Administration Tramadol HCl 50 mg 12/26/20 14:18 12/27/20 11:11 Tramadol 50 Mg Tablet PO 50 mg Q4HR PRN Administration PAIN - Physical Exam Wound/Incisions: positive: Dressing dry and intact General Appearance: positive: No acute distress Skin: positive: Color nml Extremities: positive: Joint swelling Neurologic/Psychiatric: positive: Motor nml, Sensation nml Impression/Plan - Problem List Problem List: Patient is an 89-year-old man with presumed atrial fibrillation seen on monitoring, hypothyroidism who is postop day 1 a right quadriceps tendon repair performed by Dr Dennis Castaneda at [facility] on 12/27/2020. Patient is currently nonweightbearing, he is to remain in his posterior leg splint until initial postop visit will we will consider putting him in a hinged knee brace with limited flexion availability. Patient shows no signs or symptoms of infection. Given his baseline confusion voiding opioids is recommended. Patient has been ordered scheduled tramadol and can use Tylenol for pain along with ice and elevation. Patient is pleasant has no complaints. The plan developed with utilization management Was to have the patient stay 2 midnights in order to get placement to a snf facility. Comanaged with hospitalist
[2020-12-27] MEDS ORDERED: SODIUM CHLORIDE 0.9% 1,000 ML IV SCH (12:00)
--- NOTE | 2020-12-27 14:58 | PROVIDER PROGRESS NOTE ---
Assessment/Plan - Problem List (1) Traumatic rupture of right quadriceps tendon Qualifiers: Encounter type: initial encounter Qualified Code(s): S76.111A - Strain of right quadriceps muscle, fascia and tendon, initial encounter Assessment/Plan: 12/27 continue PT/OT, pain control, followup with orthopedics surgeon. followup with orthopedics, continue pain control, aspirin for DVT Prophylaxis, PT/OT (2) Afib Conclusion/Plan: 12/27 HR is control, continue dignoxin and metoprolol, tele monitor pt's heart rate is controlled now, resume home Digoxin, and metoprolol. We will check digoxin serum concentration, add tele monitor. (3) HTN (hypertension) Conclusion/Plan: 12/27 nurse report pt has orthostatic hypotension, plan: check orthostatic vital, gently IVF, add Neptali hose, closely monitor BP, adjust BP or hold BP meds. fall precaution. pt had low BP at operation room but his BP remain in normal arrange in medical floor, we will closely monitor pt's vital signs, resume his BP meds on tomorrow. (4) Hypothyroidism Conclusion/Plan: 12/27 TSH is normal arrange, continue home synthroid will check TSH, resume home Synthroid (5) BPH (benign prostatic hyperplasia) Conclusion/Plan: we will resume home Flomax - Current Meds Current Meds: Current Medications Generic Name Dose Route Start Last Admin Trade Name Freq PRN Reason Stop Dose Admin Acetaminophen 650 - 975 mg 12/26/20 14:18 12/27/20 07:03 Acetaminophen 325 Mg Tablet PO 650 mg Q4HR PRN Administration PAIN Aspirin 81 mg 12/26/20 21:00 12/27/20 09:25 Aspirin Chew 81 Mg Tablet PO 81 mg BID JUANA Administration Atorvastatin Calcium 40 mg 12/26/20 21:00 12/26/20 21:43 Atorvastatin 40 Mg Tablet PO 40 mg QPM JUANA Administration Digoxin 125 mcg 12/27/20 09:00 12/27/20 09:26 Digoxin 125 Mcg Tablet PO 125 mcg DAILY JUANA Administration Sodium Chloride 1,000 mls @ 100 mls/hr 12/27/20 12:00 12/27/20 11:56 Normal Saline 0.9% IV 12/27/20 21:59 100 mls/hr .Q10H JUANA Administration Ibuprofen 600 mg 12/26/20 14:03 12/27/20 07:03 Ibuprofen 600 Mg Tablet PO 600 mg Q6HR PRN Administration Pain 1 to 4 Levothyroxine Sodium 50 mcg 12/27/20 07:00 12/27/20 07:03 Levothyroxine 25 Mcg Tablet PO 50 mcg QDAC JUANA Administration Metoprolol Succinate 50 mg 12/27/20 09:00 12/27/20 09:26 Metoprolol Succinate 50 Mg Tablet PO Not Given DAILY JUANA Sodium Chloride 10 ml 12/26/20 14:03 12/27/20 11:56 Sodium Chloride Flush 0.9% 10 Ml Syringe IVP 10 ml PRN PRN Administration NEEDED PER PROVIDER ORDERS Sodium Chloride 10 ml 12/26/20 17:00 12/27/20 07:35 Sodium Chloride Flush 0.9% 10 Ml Syringe IVP 10 ml 0100,0900,1700 JUANA Administration Sodium Chloride 10 ml 12/26/20 17:00 12/27/20 09:26 Sodium Chloride Flush 0.9% 10 Ml Syringe IVP 10 ml 0100,0900,1700 JUANA Administration Tramadol HCl 50 mg 12/26/20 14:18 12/27/20 11:11 Tramadol 50 Mg Tablet PO 50 mg Q4HR PRN Administration PAIN - Lab Result Fish Bone Diagrams: 12/27/20 05:13 12/27/20 05:13 - Additional Planning My Orders: My Active Orders 12/26/20 15:51 Telemetry- [RC] Q4HR 12/26/20 21:00 Atorvastatin [Lipitor] 40 mg PO QPM 12/27/20 07:00 Levothyroxine [Synthroid] 50 mcg PO QDAC 12/27/20 09:00 Digoxin [Lanoxin] 125 mcg PO DAILY Metoprolol Succinate [Toprol Xl] 50 mg PO DAILY 12/27/20 11:44 Orthostatic [Vital Signs - Orthostatic] [RC] DAILY NEPTALI Jenkins [RC] QSHIFT 12/27/20 12:00 Sodium Chloride 0.9% [Normal Saline 0.9%] 1,000 ml IV 100 mls/hr 12/28/20 05:00 BMP - BASIC METABOLIC PANEL [CHEM] DAILYLAB CBC - COMP BLD CT W/AUTO DIFF [HEME] DAILYLAB 12/28/20 09:00 Tamsulosin [Flomax] 0.4 mg PO DAILY 12/29/20 05:00 BMP - BASIC METABOLIC PANEL [CHEM] DAILYLAB CBC - COMP BLD CT W/AUTO DIFF [HEME] DAILYLAB 12/30/20 05:00 BMP - BASIC METABOLIC PANEL [CHEM] DAILYLAB CBC - COMP BLD CT W/AUTO DIFF [HEME] DAILYLAB Subjective - Subjective Patient Reports: Feeling Better Objective Vital Signs: Vital Signs - 24 hr 12/26/20 12/26/20 12/26/20 15:48 16:00 16:48 Temperature 36.9 C 36.5 C Heart Rate [ 72 83 Brachial] Heart Rate [ 106 H Monitoring electrodes] Respiratory 16 18 16 Rate Blood Pressure 112/60 111/61 111/72 [Left Brachial artery] O2 Saturation 99 97 100 12/26/20 12/27/20 12/27/20 20:48 00:00 05:00 Temperature 36.4 C L 36.3 C L 36.5 C Heart Rate [ Brachial] Heart Rate [ 88 57 L 62 Monitoring electrodes] Respiratory 18 18 18 Rate Blood Pressure 115/58 L 111/58 L 105/54 L [Left Brachial artery] O2 Saturation 100 93 94 12/27/20 12/27/20 08:02 11:06 Temperature 36.5 C 36.5 C Heart Rate [ Brachial] Heart Rate [ 76 82 Monitoring electrodes] Respiratory 16 17 Rate Blood Pressure 105/51 L 118/60 [Left Brachial artery] O2 Saturation 95 95 Oxygen O2 Source Room air I&O (Last 24 Hrs): Intake and Output Totals x24h 12/25/20 12/26/20 12/27/20 23:59 23:59 23:59 Intake Total 8056.850 7174.333 Output Total 125 500 Balance 1106.667 518.333 General: Alert, Oriented x3, Cooperative, No acute distress HEENT: Atraumatic Neck: Supple Lymphatic: no adenopathy Neuro: Alert, Non Focal, Oriented Times 3 Cardiovascular: Regular rate, Normal S1, Normal S2 Respiratory: Chest non-tender, No respiratory distress Abdomen: Normal bowel sounds, Soft Extremities: Normal pulses - Results Results: Laboratory Results WBC 7.9 x10^3/uL (4.8-10.8) 12/27/20 05:13 RBC 3.30 10^6/uL (4.70-6.10) L 12/27/20 05:13 Hgb 11.5 g/dL (14.0-18.0) L 12/27/20 05:13 Hct 34.2 % (42.0-52.0) L 12/27/20 05:13 MCV 103.6 fL (80.0-94.0) H 12/27/20 05:13 MCH 34.8 pg (27.0-31.0) H 12/27/20 05:13 MCHC 33.6 g/dL (32.0-36.0) 12/27/20 05:13 RDW 13.2 % (12.0-15.0) 12/27/20 05:13 Plt Count 233 10^3/uL (130-450) 12/27/20 05:13 MPV 10.7 fL (7.4-11.4) 12/27/20 05:13 Neut # (Auto) 5.4 10^3/uL (1.5-6.6) 12/27/20 05:13 Lymph # (Auto) 1.2 10^3/uL (1.5-3.5) L 12/27/20 05:13 Carbon # (Auto) 1.0 10^3/uL (0.0-1.0) 12/27/20 05:13 Eos # (Auto) 0.1 10^3/uL (0.0-0.7) 12/27/20 05:13 Baso # (Auto) 0.1 10^3/uL (0.0-0.1) 12/27/20 05:13 Absolute Nucleated RBC 0.00 x10^3/uL 12/27/20 05:13 Nucleated RBC % 0.0 /100WBC 12/27/20 05:13 Sodium 140 mmol/L (135-145) 12/27/20 05:13 Potassium 4.1 mmol/L (3.5-5.0) 12/27/20 05:13 Chloride 106 mmol/L (101-111) 12/27/20 05:13 Carbon Dioxide 27 mmol/L (21-32) 12/27/20 05:13 Anion Gap 7.0 (6-13) 12/27/20 05:13 BUN 15 mg/dL (6-20) 12/27/20 05:13 Creatinine 0.9 mg/dL (0.6-1.2) 12/27/20 05:13 Estimated GFR (MDRD) 79 (>89) L 12/27/20 05:13 Glucose 118 mg/dL (70-100) H 12/27/20 05:13 Calcium 8.1 mg/dL (8.5-10.3) L 12/27/20 05:13 TSH 3.77 uIU/mL (0.34-5.60) 12/26/20 16:04 Nasal Adenovirus (PCR) NOT DETECTED 12/26/20 17:45 Nasal B. parapertussis DNA (PCR) NOT DETECTED 12/26/20 17:45 Nasal Coronavir 229E PCR NOT DETECTED 12/26/20 17:45 Nasal Coronavir HKU1 PCR NOT DETECTED 12/26/20 17:45 Nasal Coronavir NL63 PCR NOT DETECTED 12/26/20 17:45 Nasal Coronavir OC43 PCR NOT DETECTED 12/26/20 17:45 Nasal Enterovir/Rhinovir PCR NOT DETECTED 12/26/20 17:45 Nasal Influenza B PCR NOT DETECTED 12/26/20 17:45 Nasal Influenza A PCR NOT DETECTED 12/26/20 17:45 Nasal Parainfluen 1 PCR NOT DETECTED 12/26/20 17:45 Nasal Parainfluen 2 PCR NOT DETECTED 12/26/20 17:45 Nasal Parainfluen 3 PCR NOT DETECTED 12/26/20 17:45 Nasal Parainfluen 4 PCR NOT DETECTED 12/26/20 17:45 Nasal RSV (PCR) NOT DETECTED 12/26/20 17:45 Nasal B.pertussis DNA PCR NOT DETECTED 12/26/20 17:45 Nasal C.pneumoniae (PCR) NOT DETECTED 12/26/20 17:45 Bang Human Metapneumo PCR NOT DETECTED 12/26/20 17:45 Nasal M.pneumoniae (PCR) NOT DETECTED 12/26/20 17:45 Nasal SARS-CoV-2 (PCR) NOT DETECTED 12/26/20 17:45 Ref Lab Test Result REPORT 12/26/20 16:04 ABX Reporting Has patient been on IV antibiotics over the past 48 hours?: No Current Medications - Current Medications Current Medications: Active Medications Acetaminophen (Acetaminophen 325 Mg Tablet) 650 - 975 mg PO Q4HR PRN PRN Reason: PAIN Last Admin: 12/27/20 07:03 Dose: 650 mg Documented by: Aspirin (Aspirin Chew 81 Mg Tablet) 81 mg PO BID [facility] Last Admin: 12/27/20 09:25 Dose: 81 mg Documented by: Atorvastatin Calcium (Atorvastatin 40 Mg Tablet) 40 mg PO QPM [facility] Last Admin: 12/26/20 21:43 Dose: 40 mg Documented by: Digoxin (Digoxin 125 Mcg Tablet) 125 mcg PO DAILY [facility] Last Admin: 12/27/20 09:26 Dose: 125 mcg Documented by: Acetaminophen (Ofirmev) 100 mls @ 400 mls/hr IV Q6HR PRN PRN Reason: PAIN Sodium Chloride (Normal Saline 0.9%) 1,000 mls @ 100 mls/hr IV .Q10H [facility] Stop: 12/27/20 21:59 Last Admin: 12/27/20 11:56 Dose: 100 mls/hr Documented by: Ibuprofen (Ibuprofen 600 Mg Tablet) 600 mg PO Q6HR PRN PRN Reason: Pain 1 to 4 Last Admin: 12/27/20 07:03 Dose: 600 mg Documented by: Levothyroxine Sodium (Levothyroxine 25 Mcg Tablet) 50 mcg PO QDAC [facility] Last Admin: 12/27/20 07:03 Dose: 50 mcg Documented by: Metoprolol Succinate (Metoprolol Succinate 50 Mg Tablet) 50 mg PO DAILY [facility] Last Admin: 12/27/20 09:26 Dose: Not Given Documented by: Ondansetron HCl (Ondansetron 4 Mg/2 Ml Vial) 4 mg IVP Q6HR PRN PRN Reason: Nausea / Vomiting Prochlorperazine Edisylate (Prochlorperazine 10 Mg/2 Ml Vial) 10 mg IVP Q6HR PRN PRN Reason: Nausea / Vomiting Sodium Chloride (Sodium Chloride Flush 0.9% 10 Ml Syringe) 10 ml IVP PRN PRN PRN Reason: NEEDED PER PROVIDER ORDERS Last Admin: 12/27/20 11:56 Dose: 10 ml Documented by: Sodium Chloride (Sodium Chloride Flush 0.9% 10 Ml Syringe) 10 ml IVP 0100,0900,1700 [facility] Last Admin: 12/27/20 07:35 Dose: 10 ml Documented by: Sodium Chloride (Sodium Chloride Flush 0.9% 10 Ml Syringe) 10 ml IVP 0100,0900,1700 [facility] Last Admin: 12/27/20 09:26 Dose: 10 ml Documented by: Sodium Chloride (Sodium Chloride Flush 0.9% 10 Ml Syringe) 10 ml IVP PRN PRN PRN Reason: NEEDED PER PROVIDER ORDERS Tamsulosin HCl (Tamsulosin 0.4 Mg Capsule) 0.4 mg PO DAILY JUANA Tramadol HCl (Tramadol 50 Mg Tablet) 50 mg PO Q4HR PRN PRN Reason: PAIN Last Admin: 12/27/20 11:11 Dose: 50 mg Documented by: Atorvastatin [Lipitor] 40 mg PO DAILY PM 12/24/18 Digoxin [Lanoxin] 125 mcg PO DAILY 12/24/18 Levothyroxine [Synthroid] 50 mcg PO DAILY 12/24/18 Metoprolol Succinate 50 mg PO DAILY 12/24/18 lisinopriL [Lisinopril] 5 mg PO DAILY 12/24/18 Tamsulosin [Flomax] 0.8 mg PO DAILY 12/25/20
[2020-12-27] MEDS: METOPROLOL 5 MG/5 ML VIAL IVP PRN (19:10)
[2020-12-27] MEDS: ATORVASTATIN 40 MG TABLET PO SCH (20:37)
[2020-12-28 06:28] LABS: BASOPHILS # (AUTO) 0.1 10^3/uL (0.0-0.1); BASOPHILS % (AUTO) 0.7 %; EOSINOPHILS # (AUTO) 0.3 10^3/uL (0.0-0.7); EOSINOPHILS % (AUTO) 3.7 %; HCT - HEMATOCRIT 35.9 % (42.0-52.0); HGB - HEMOGLOBIN 11.7 g/dL (14.0-18.0); LYMPHOCYTES # (AUTO) 1.2 10^3/uL (1.5-3.5); LYMPHOCYTES % (AUTO) 13.8 %; MEAN CORPUSCULAR HEMOGLOBIN 32.7 pg (27.0-31.0); MEAN CORPUSCULAR HGB CONC 32.6 g/dL (32.0-36.0); MEAN CORPUSCULAR VOLUME 100.3 fL (80.0-94.0); MEAN PLATELET VOLUME 10.4 fL (7.4-11.4); MONOCYTES # (AUTO) 1.1 10^3/uL (0.0-1.0); MONOCYTES % (AUTO) 12.5 %; NEUTROPHILS # (AUTO) 5.9 10^3/uL (1.5-6.6); NEUTROPHILS % (AUTO) 68.9 %; PLT - PLATELET COUNT 236 10^3/uL (130-450); RED BLOOD COUNT 3.58 10^6/uL (4.70-6.10); RED CELL DISTRIBUTION WIDTH 13.4 % (12.0-15.0); WHITE BLOOD COUNT 8.5 x10^3/uL (4.8-10.8)
[2020-12-28 06:39] LABS: CALCIUM 8.5 mg/dL (8.5-10.3); CREATININE 0.9 mg/dL (0.6-1.2); POTASSIUM 4.1 mmol/L (3.5-5.0)
[2020-12-28] MEDS: LEVOTHYROXINE 25 MCG TABLET PO SCH (07:23)
[2020-12-28] MEDS: traMADol 50 MG TABLET PO PRN (07:23)
[2020-12-28] MEDS: IBUPROFEN 600 MG TABLET PO PRN (07:23)
[2020-12-28] MEDS: SODIUM CHLORIDE FLUSH 0.9% 10 ML SYRINGE IVP SCH ×6 (07:24→16:22)
[2020-12-28] MEDS ORDERED: SODIUM CHLORIDE 0.9% 500 ML IV ONE (08:01)
[2020-12-28] MEDS: ASPIRIN CHEW 81 MG TABLET PO SCH ×2 (08:22→21:44)
[2020-12-28] MEDS: DIGOXIN 125 MCG TABLET PO SCH (08:24)
[2020-12-28] MEDS ORDERED: TAMSULOSIN 0.4 MG CAPSULE PO SCH (09:00)
--- NOTE | 2020-12-28 09:07 | PROVIDER PROGRESS NOTE ---
Subjective - General Admit Date: 12/26/20 Procedure Date: 12/26/20 Post Op Days: 2 Procedure Performed: Right quadriceps tendon repair - Review of Systems Wound/Incisions: positive: Dressing dry and intact General: negative: Fever, Chills Gastrointestinal: negative: Nausea, Vomiting Musculoskeletal: positive: Joint pain Psychiatric: positive: Confusion - Other Other Information/Narrative: 89-year-old male with a history including A. fib not on anticoagulation, hy pothyroidism Who is postop day 3-year-old with a right quadriceps tendon repair performed by Dr Dennis Castaneda at [facility] on 2020.Patient is nonweightbearing With front wheeled walker on operative leg, denies signs or symptoms of infection pain is well controlled. Objective - Patient Data Reviewed Vital Signs: Yes Vital Signs: Vital Signs x48h Temp Pulse Pulse Resp BP BP Pulse Ox 12/28/20 08:57 79 98/51 L 12/28/20 08:15 80 72/50 L 12/28/20 07:52 36.2 C L 83 18 79/53 L 84/56 L 93 12/28/20 05:00 36.1 C L 88 16 121/68 82/57 L 93 12/28/20 01:44 36.6 C 66 18 111/51 L 93 Weight: Weight 12/26/20 12/27/20 12/28/20 23:59 23:59 23:59 Weight (kg) 86 kg Intake & Output: Intake and Output Totals x24h 12/26/20 12/27/20 12/28/20 23:59 23:59 23:59 Intake Total 5970.455 2812.333 Output Total 125 1320 450 Balance 1398.922 8848.333 -450 - Lab Results Lab Results: 12/28/20 06:16 12/28/20 06:16 Other Lab Results: Lab Results x24hrs 12/28/20 12/28/20 Range/Units 06:16 06:16 WBC 8.5 (4.8-10.8) x10^3/uL RBC 3.58 L (4.70-6.10) 10^6/uL Hgb 11.7 L (14.0-18.0) g/dL Hct 35.9 L (42.0-52.0) % MCV 100.3 H (80.0-94.0) fL MCH 32.7 H (27.0-31.0) pg MCHC 32.6 (32.0-36.0) g/dL RDW 13.4 (12.0-15.0) % Plt Count 236 (130-450) 10^3/uL MPV 10.4 (7.4-11.4) fL Neut # (Auto) 5.9 (1.5-6.6) 10^3/uL Lymph # (Auto) 1.2 L (1.5-3.5) 10^3/uL [place] # (Auto) 1.1 H (0.0-1.0) 10^3/uL Eos # (Auto) 0.3 (0.0-0.7) 10^3/uL Baso # (Auto) 0.1 (0.0-0.1) 10^3/uL Absolute Nucleated RBC 0.00 x10^3/uL Nucleated RBC % 0.0 /100WBC Sodium 141 (135-145) mmol/L Potassium 4.1 (3.5-5.0) mmol/L Chloride 106 (101-111) mmol/L Carbon Dioxide 26 (21-32) mmol/L Anion Gap 9.0 (6-13) BUN 17 (6-20) mg/dL Creatinine 0.9 (0.6-1.2) mg/dL Estimated GFR (MDRD) 79 L (>89) Glucose 108 H (70-100) mg/dL Calcium 8.5 (8.5-10.3) mg/dL - Current Medications Current Medications: Current Medications Generic Name Dose Route Start Last Admin Trade Name Freq PRN Reason Stop Dose Admin Acetaminophen 650 - 975 mg 12/26/20 14:18 12/27/20 07:03 Acetaminophen 325 Mg Tablet PO 650 mg Q4HR PRN Administration PAIN Aspirin 81 mg 12/26/20 21:00 12/28/20 08:22 Aspirin Chew 81 Mg Tablet PO 81 mg BID JUANA Administration Atorvastatin Calcium 40 mg 12/26/20 21:00 12/27/20 20:37 Atorvastatin 40 Mg Tablet PO 40 mg QPM JUANA Administration Digoxin 125 mcg 12/27/20 09:00 12/28/20 08:24 Digoxin 125 Mcg Tablet PO 125 mcg DAILY JUANA Administration Ibuprofen 600 mg 12/26/20 14:03 12/28/20 07:23 Ibuprofen 600 Mg Tablet PO 600 mg Q6HR PRN Administration Pain 1 to 4 Levothyroxine Sodium 50 mcg 12/27/20 07:00 12/28/20 07:23 Levothyroxine 25 Mcg Tablet PO 50 mcg QDAC JUANA Administration Metoprolol Tartrate 5 mg 12/27/20 18:48 12/27/20 19:10 Metoprolol 5 Mg/5 Ml Vial IVP 5 mg Q6H PRN Administration Tachycardia Sodium Chloride 10 ml 12/26/20 14:03 12/27/20 11:56 Sodium Chloride Flush 0.9% 10 Ml Syringe IVP 10 ml PRN PRN Administration NEEDED PER PROVIDER ORDERS Sodium Chloride 10 ml 12/26/20 17:00 12/28/20 08:22 Sodium Chloride Flush 0.9% 10 Ml Syringe IVP 10 ml 0100,0900,1700 JUANA Administration Sodium Chloride 10 ml 12/26/20 17:00 12/28/20 08:26 Sodium Chloride Flush 0.9% 10 Ml Syringe IVP Not Given 0100,0900,1700 JUANA Tamsulosin HCl 0.4 mg 12/28/20 09:00 12/28/20 08:22 Tamsulosin 0.4 Mg Capsule PO 0.4 mg DAILY JUANA Administration Tramadol HCl 50 mg 12/26/20 14:18 12/28/20 07:23 Tramadol 50 Mg Tablet PO 50 mg Q4HR PRN Administration PAIN - Physical Exam Wound/Incisions: positive: Dressing dry and intact General Appearance: positive: No acute distress Respiratory: positive: No respiratory distress Skin: positive: Color nml, Warm, Dry Neurologic/Psychiatric: positive: Motor nml, Sensation nml ABX Reporting Has patient been on IV antibiotics over the past 48 hours?: Yes Impression/Plan - Problem List Problem List: Patient is an 89-year-old male who is postop day 2 quadriceps tendon repair [place] Dennis Tolent[place] [facility] [place]. Patient is nonweightbearing on right leg with a front wheelec walker, keep patient in the posterior long-leg splint until initial postop follow-up with Ortho on ThursdayJanuary 01 at 2:30 PM at [address] [place] [facility]. Phone #[phone]. Patient to continue PT/OT to help with pain and assist patient with transfer to chair and transfer to bathroom. Continue pain meds and continue aspirin for DVT prophylaxis.
--- NOTE | 2020-12-28 09:20 | Discharge Plan ---
Discharge Plan Problem Reviewed?: Yes Disposition: 03 SNF DC/Xfer Condition: Good Diet: Regular Activity Restrictions: Activity as Tolerated Shower Restrictions: Yes Driving Restrictions: Yes (Do not operate motor vehicle) Assistance Devices: Walker (Front wheeled walker) Weight Bearing: No Weight (Nonweightbearing on right leg, patient can weight- bear on nonoperative left leg.) Plan of Treatment: Patient to receive PT OT to help with up in bed, up to chair up to commode and assist with use of front wheel walker.Patient to keep splint on until first postop appointment on January 01 at 2:30 PM. No Smoking: If you smoke, Please STOP! Call for help. Follow-up with: Robert Mercado MD [Primary Care Provider] -
--- NOTE | 2020-12-28 09:27 | Discharge Plan ---
Discharge Plan Problem Reviewed?: Yes Disposition: 03 SNF DC/Xfer Condition: Good Diet: Regular Activity Restrictions: Activity as Tolerated Shower Restrictions: Yes Driving Restrictions: Yes (Do not operate a motor vehicle) Assistance Devices: Walker Weight Bearing: No Weight (Nonweightbearing on right operative leg, patient can weight-bear nonoperative left leg.) Plan of Treatment: Patient to receive PT OT to help with up in bed, up to chair up to commode and assist with use of front wheel walker.Patient to keep splint on until first postop appointment on January 01 at 2:30 PM.Patient to receive Scheduled acetaminophen 650 mg every 4Hours and ibuprofen 600 mg every 6 hours for pain. 81 mg aspirin twice daily DVT prophylaxis for 6 weeks. Additional Instructions or Follow Up instructions: Patient has in his initial postop appointment on January 01 at 2:30 PM at the [address] [place] [address] [facility] phone number [phone] No Smoking: If you smoke, Please STOP! Call for help. Follow-up with: Robert Mercado MD [Primary Care Provider] -
[2020-12-28] MEDS ORDERED: SODIUM CHLORIDE 0.9% 1,000 ML IV SCH (13:00)
--- NOTE | 2020-12-28 14:33 | PROVIDER PROGRESS NOTE ---
Assessment/Plan - Problem List (1) Hypotension Assessment/Plan: Patient presents hypotensive in the morning. But the patient is asymptomatic, He ate his breakfast by self, and appropriately answer the questions. After the patient had 500cc bolus normal saline, patient blood pressure did improve but the patient still present orthostatic hypotensive. We will continue monitor technician, continue hold home blood pressure medications, Continue gently IV fluids, continue NEPTALI hose, Fall precaution (2) Traumatic rupture of right quadriceps tendon Qualifiers: Encounter type: initial encounter Qualified Code(s): S76.111A - Strain of right quadriceps muscle, fascia and tendon, initial encounter Assessment/Plan: We will continue pain control, continue physical therapist and occupational therapist evaluation and treatment for patient, we will follow up with orthopedic surgeon (3) Afib Assessment/Plan: Heart rate is 87, It is seems it is in the control. We will continue digoxin, Continue telemetry, Continue intravenous metoprolol as needed But the precautions of hypotension. Patient has no home anticoagulations (4) HTN (hypertension) Assessment/Plan: Hold the home blood pressure medication since patient has hypotensive, Continue vital signs monitor - Current Meds Current Meds: Current Medications Generic Name Dose Route Start Last Admin Trade Name Freq PRN Reason Stop Dose Admin Acetaminophen 650 - 975 mg 12/26/20 14:18 12/27/20 07:03 Acetaminophen 325 Mg Tablet PO 650 mg Q4HR PRN Administration PAIN Aspirin 81 mg 12/26/20 21:00 12/28/20 08:22 Aspirin Chew 81 Mg Tablet PO 81 mg BID JUANA Administration Atorvastatin Calcium 40 mg 12/26/20 21:00 12/27/20 20:37 Atorvastatin 40 Mg Tablet PO 40 mg QPM JUANA Administration Digoxin 125 mcg 12/27/20 09:00 12/28/20 08:24 Digoxin 125 Mcg Tablet PO 125 mcg DAILY JUANA Administration Sodium Chloride 1,000 mls @ 83.333 mls/hr 12/28/20 13:00 12/28/20 14:06 Normal Saline 0.9% IV 12/29/20 12:59 83.333 mls/hr .Q12H JUANA Administration Ibuprofen 600 mg 12/26/20 14:03 12/28/20 07:23 Ibuprofen 600 Mg Tablet PO 600 mg Q6HR PRN Administration Pain 1 to 4 Levothyroxine Sodium 50 mcg 12/27/20 07:00 12/28/20 07:23 Levothyroxine 25 Mcg Tablet PO 50 mcg QDAC JUANA Administration Metoprolol Tartrate 5 mg 12/27/20 18:48 12/27/20 19:10 Metoprolol 5 Mg/5 Ml Vial IVP 5 mg Q6H PRN Administration Tachycardia Sodium Chloride 10 ml 12/26/20 14:03 12/27/20 11:56 Sodium Chloride Flush 0.9% 10 Ml Syringe IVP 10 ml PRN PRN Administration NEEDED PER PROVIDER ORDERS Sodium Chloride 10 ml 12/26/20 17:00 12/28/20 08:22 Sodium Chloride Flush 0.9% 10 Ml Syringe IVP 10 ml 0100,0900,1700 JUANA Administration Sodium Chloride 10 ml 12/26/20 17:00 12/28/20 08:26 Sodium Chloride Flush 0.9% 10 Ml Syringe IVP Not Given 0100,0900,1700 JUANA Tamsulosin HCl 0.4 mg 12/28/20 09:00 12/28/20 08:22 Tamsulosin 0.4 Mg Capsule PO 0.4 mg DAILY JUANA Administration Tramadol HCl 50 mg 12/26/20 14:18 12/28/20 07:23 Tramadol 50 Mg Tablet PO 50 mg Q4HR PRN Administration PAIN - Lab Result Fish Bone Diagrams: 12/28/20 06:16 12/28/20 06:16 - Additional Planning My Orders: My Active Orders 12/27/20 18:48 Metoprolol Inj [Lopressor Inj] 5 mg IVP Q6H PRN 12/28/20 09:00 Tamsulosin [Flomax] 0.4 mg PO DAILY 12/28/20 13:00 Sodium Chloride 0.9% [Normal Saline 0.9%] 1,000 ml IV 83.333 mls/hr 12/28/20 14:29 Telemetry- [RC] Q4HR 12/28/20 16:00 CORTISOL,4 PM [IAI] Timed 12/29/20 05:00 BMP - BASIC METABOLIC PANEL [CHEM] DAILYLAB CBC - COMP BLD CT W/AUTO DIFF [HEME] DAILYLAB 12/30/20 05:00 BMP - BASIC METABOLIC PANEL [CHEM] DAILYLAB CBC - COMP BLD CT W/AUTO DIFF [HEME] DAILYLAB Subjective - Subjective Patient Reports: Feeling Better Objective Vital Signs: Vital Signs - 24 hr 12/27/20 12/27/20 12/27/20 15:40 16:00 18:43 Temperature 36.6 C Heart Rate [ Brachial] Heart Rate [ 63 Monitoring electrodes] Heart Rate [ Radial] Respiratory 24 Rate Blood Pressure Blood Pressure 107/52 L 90/55 L 110/55 L [Left Brachial artery] Blood Pressure 90/60 [Right Brachial artery] O2 Saturation 93 12/27/20 12/27/20 12/27/20 19:10 19:15 19:22 Temperature Heart Rate [ Brachial] Heart Rate [ 126 H 92 81 Monitoring electrodes] Heart Rate [ Radial] Respiratory Rate Blood Pressure 110/55 L Blood Pressure 110/55 L 103/46 L 116/59 L [Left Brachial artery] Blood Pressure [Right Brachial artery] O2 Saturation 12/27/20 12/27/20 12/27/20 19:27 19:40 19:51 Temperature 36.6 C Heart Rate [ Brachial] Heart Rate [ 93 54 L Monitoring electrodes] Heart Rate [ Radial] Respiratory 24 Rate Blood Pressure 105/51 L Blood Pressure 112/61 131/72 H [Left Brachial artery] Blood Pressure [Right Brachial artery] O2 Saturation 94 12/28/20 12/28/20 12/28/20 01:44 05:00 07:52 Temperature 36.6 C 36.1 C L 36.2 C L Heart Rate [ 66 88 83 Brachial] Heart Rate [ Monitoring electrodes] Heart Rate [ Radial] Respiratory 18 16 18 Rate Blood Pressure Blood Pressure 111/51 L 121/68 79/53 L [Left Brachial artery] Blood Pressure 82/57 L 84/56 L [Right Brachial artery] O2 Saturation 93 93 93 12/28/20 12/28/20 12/28/20 08:15 08:57 14:00 Temperature 36.4 C L Heart Rate [ 79 87 Brachial] Heart Rate [ Monitoring electrodes] Heart Rate [ 80 Radial] Respiratory 16 Rate Blood Pressure Blood Pressure 98/51 L 104/48 L [Left Brachial artery] Blood Pressure 72/50 L [Right Brachial artery] O2 Saturation 94 Oxygen O2 Source Room air I&O (Last 24 Hrs): Intake and Output Totals x24h 12/26/20 12/27/20 12/28/20 23:59 23:59 23:59 Intake Total 5128.109 7159.333 980 Output Total 125 1320 1025 Balance 0679.405 9216.333 -45 General: Alert, Oriented x3, Cooperative, No acute distress HEENT: Atraumatic Neck: Supple Lymphatic: no adenopathy Neuro: Alert, Non Focal Cardiovascular: Regular rate, Normal S1, Normal S2 Respiratory: Chest non-tender, No respiratory distress Abdomen: Normal bowel sounds, Soft Extremities: Normal pulses - Results Results: Laboratory Results WBC 8.5 x10^3/uL (4.8-10.8) 12/28/20 06:16 RBC 3.58 10^6/uL (4.70-6.10) L 12/28/20 06:16 Hgb 11.7 g/dL (14.0-18.0) L 12/28/20 06:16 Hct 35.9 % (42.0-52.0) L 12/28/20 06:16 MCV 100.3 fL (80.0-94.0) H 12/28/20 06:16 MCH 32.7 pg (27.0-31.0) H 12/28/20 06:16 MCHC 32.6 g/dL (32.0-36.0) 12/28/20 06:16 RDW 13.4 % (12.0-15.0) 12/28/20 06:16 Plt Count 236 10^3/uL (130-450) 12/28/20 06:16 MPV 10.4 fL (7.4-11.4) 12/28/20 06:16 Neut # (Auto) 5.9 10^3/uL (1.5-6.6) 12/28/20 06:16 Lymph # (Auto) 1.2 10^3/uL (1.5-3.5) L 12/28/20 06:16 Fleming # (Auto) 1.1 10^3/uL (0.0-1.0) H 12/28/20 06:16 Eos # (Auto) 0.3 10^3/uL (0.0-0.7) 12/28/20 06:16 Baso # (Auto) 0.1 10^3/uL (0.0-0.1) 12/28/20 06:16 Absolute Nucleated RBC 0.00 x10^3/uL 12/28/20 06:16 Nucleated RBC % 0.0 /100WBC 12/28/20 06:16 Sodium 141 mmol/L (135-145) 12/28/20 06:16 Potassium 4.1 mmol/L (3.5-5.0) 12/28/20 06:16 Chloride 106 mmol/L (101-111) 12/28/20 06:16 Carbon Dioxide 26 mmol/L (21-32) 12/28/20 06:16 Anion Gap 9.0 (6-13) 12/28/20 06:16 BUN 17 mg/dL (6-20) 12/28/20 06:16 Creatinine 0.9 mg/dL (0.6-1.2) 12/28/20 06:16 Estimated GFR (MDRD) 79 (>89) L 12/28/20 06:16 Glucose 108 mg/dL (70-100) H 12/28/20 06:16 Calcium 8.5 mg/dL (8.5-10.3) 12/28/20 06:16 Troponin I High Sens 17.2 ng/L (2.3-19.7) 12/28/20 06:16 TSH 3.77 uIU/mL (0.34-5.60) 12/26/20 16:04 Cortisol AM Sample 13.1 ug/dL 12/28/20 06:16 Nasal Adenovirus (PCR) NOT DETECTED 12/26/20 17:45 Nasal B. parapertussis DNA (PCR) NOT DETECTED 12/26/20 17:45 Nasal Coronavir 229E PCR NOT DETECTED 12/26/20 17:45 Nasal Coronavir HKU1 PCR NOT DETECTED 12/26/20 17:45 Nasal Coronavir NL63 PCR NOT DETECTED 12/26/20 17:45 Nasal Coronavir OC43 PCR NOT DETECTED 12/26/20 17:45 Nasal Enterovir/Rhinovir PCR NOT DETECTED 12/26/20 17:45 Nasal Influenza B PCR NOT DETECTED 12/26/20 17:45 Nasal Influenza A PCR NOT DETECTED 12/26/20 17:45 Nasal Parainfluen 1 PCR NOT DETECTED 12/26/20 17:45 Nasal Parainfluen 2 PCR NOT DETECTED 12/26/20 17:45 Nasal Parainfluen 3 PCR NOT DETECTED 12/26/20 17:45 Nasal Parainfluen 4 PCR NOT DETECTED 12/26/20 17:45 Nasal RSV (PCR) NOT DETECTED 12/26/20 17:45 Nasal B.pertussis DNA PCR NOT DETECTED 12/26/20 17:45 Nasal C.pneumoniae (PCR) NOT DETECTED 12/26/20 17:45 Bang Human Metapneumo PCR NOT DETECTED 12/26/20 17:45 Nasal M.pneumoniae (PCR) NOT DETECTED 12/26/20 17:45 Nasal SARS-CoV-2 (PCR) NOT DETECTED 12/26/20 17:45 Ref Lab Test Result REPORT 12/26/20 16:04 ABX Reporting Has patient been on IV antibiotics over the past 48 hours?: No Current Medications - Current Medications Current Medications: Active Medications Acetaminophen (Acetaminophen 325 Mg Tablet) 650 - 975 mg PO Q4HR PRN PRN Reason: PAIN Last Admin: 12/27/20 07:03 Dose: 650 mg Documented by: Aspirin (Aspirin Chew 81 Mg Tablet) 81 mg PO BID [facility] Last Admin: 12/28/20 08:22 Dose: 81 mg Documented by: Atorvastatin Calcium (Atorvastatin 40 Mg Tablet) 40 mg PO QPM [facility] Last Admin: 12/27/20 20:37 Dose: 40 mg Documented by: Digoxin (Digoxin 125 Mcg Tablet) 125 mcg PO DAILY [facility] Last Admin: 12/28/20 08:24 Dose: 125 mcg Documented by: Sodium Chloride (Normal Saline 0.9%) 1,000 mls @ 83.333 mls/hr IV .Q12H [facility] Stop: 12/29/20 12:59 Last Admin: 12/28/20 14:06 Dose: 83.333 mls/hr Documented by: Ibuprofen (Ibuprofen 600 Mg Tablet) 600 mg PO Q6HR PRN PRN Reason: Pain 1 to 4 Last Admin: 12/28/20 07:23 Dose: 600 mg Documented by: Levothyroxine Sodium (Levothyroxine 25 Mcg Tablet) 50 mcg PO QDAC [facility] Last Admin: 12/28/20 07:23 Dose: 50 mcg Documented by: Metoprolol Tartrate (Metoprolol 5 Mg/5 Ml Vial) 5 mg IVP Q6H PRN PRN Reason: Tachycardia Last Admin: 12/27/20 19:10 Dose: 5 mg Documented by: Ondansetron HCl (Ondansetron 4 Mg/2 Ml Vial) 4 mg IVP Q6HR PRN PRN Reason: Nausea / Vomiting Prochlorperazine Edisylate (Prochlorperazine 10 Mg/2 Ml Vial) 10 mg IVP Q6HR PRN PRN Reason: Nausea / Vomiting Sodium Chloride (Sodium Chloride Flush 0.9% 10 Ml Syringe) 10 ml IVP PRN PRN PRN Reason: NEEDED PER PROVIDER ORDERS Last Admin: 12/27/20 11:56 Dose: 10 ml Documented by: Sodium Chloride (Sodium Chloride Flush 0.9% 10 Ml Syringe) 10 ml IVP 0100,0900,1700 [facility] Last Admin: 12/28/20 08:22 Dose: 10 ml Documented by: Sodium Chloride (Sodium Chloride Flush 0.9% 10 Ml Syringe) 10 ml IVP 0100,0900,1700 [facility] Last Admin: 12/28/20 08:26 Dose: Not Given Documented by: Sodium Chloride (Sodium Chloride Flush 0.9% 10 Ml Syringe) 10 ml IVP PRN PRN PRN Reason: NEEDED PER PROVIDER ORDERS Tamsulosin HCl (Tamsulosin 0.4 Mg Capsule) 0.4 mg PO DAILY [facility] Last Admin: 12/28/20 08:22 Dose: 0.4 mg Documented by: Tramadol HCl (Tramadol 50 Mg Tablet) 50 mg PO Q4HR PRN PRN Reason: PAIN Last Admin: 12/28/20 07:23 Dose: 50 mg Documented by: Atorvastatin [Lipitor] 40 mg PO DAILY PM 12/24/18 Digoxin [Lanoxin] 125 mcg PO DAILY 12/24/18 Levothyroxine [Synthroid] 50 mcg PO DAILY 12/24/18 Metoprolol Succinate 50 mg PO DAILY 12/24/18 lisinopriL [Lisinopril] 5 mg PO DAILY 12/24/18 Tamsulosin [Flomax] 0.8 mg PO DAILY 12/25/20
--- NOTE | 2020-12-28 19:07 | Discharge Plan ---
"Discharge Plan for SNF / [facility] - Discharge Plan And Transition Orders Problem Reviewed?: Yes - SNF / CARE HOME Transition Orders Medicare Certification Statement: I certify that [facility] long[facility] care is medically necessary on a continuing basis for any of the conditions for which she/he is receiving care during hospitalization. Notify PCP of admission and forward orders to primary provider for signature. Other Notification Orders: Call PCP immediately if patient develops dyspnea, chest pain/tightness or edema. Additional Bowel Program Orders: If no BM after 2 days, nurse may give M.O.M. 30ml PO PRN and/or ducolax Supp 1 ME and/or JOHN 250mg P.O., and/or senna 1-2 tabs PO. On day 3 nurse may give repeat above order until residents constipation is resolved. Medication Orders: PLEASE REFER TO THE DISCHARGE MEDICATION LIST. <Kim - Last Filed: 12/28/20 19:06> - Discharge Plan And Transition Orders Problem Reviewed?: Yes - SNF / [facility] Transition Orders Discharge Diagnosis: 1. Rupture quadriceps tendon 12/21 with surgery 12/26 2. dementia 3. BPH 4. hypothyroid 5. Hypertension. Postop hypotension. Meds are being held. Do not resume lisinopril or start metoprolol until BP back to his baseline 6. Chronic atrial fibrillation not on anticoagulation due to risk and is only on ASA and digoxin Medicare Certification Statement: I certify that [facility] long[facility] care is medically necessary on a continuing basis for any of the conditions for which she/he is receiving care during hospitalization. Notify PCP of admission and forward orders to primary provider for signature. Weight on admission and: Monthly Other Notification Orders: Call PCP immediately if patient develops dyspnea, chest pain/tightness or edema. House Bowel Program: Yes Additional Bowel Program Orders: If no BM after 2 days, nurse may give M.O.M. 30ml PO PRN and/or ducolax Supp 1 ME and/or JOHN 250mg P.O., and/or senna 1-2 tabs PO. On day 3 nurse may give repeat above order until residents constipation is resolved. Annual Influenza Vaccine (between Dec 12 and July 11): Yes Medication Orders: PLEASE REFER TO THE DISCHARGE MEDICATION LIST. Insulin Orders?: No - Diet Type: Geriatric Texture: Regular Liquids: Thin - Therapies | Activity Therapy: Evaluation | Treat if indicated: PT, OT Rehabilitation Potential: Maximize functional status, Return to independent living Activity: Additional Comments (see instructions) Weight Bearing: No Weight (on operated leg) Assistance Devices: Wheelchair, Walker <Yulia Maldonado - Last Filed: 12/29/20 07:57> - Discharge Plan And Transition Orders Disposition: 03 [facility] DC/Xfer Condition: Good Allergies and Adverse Reactions: Allergies Allergy/AdvReac Type Severity Reaction Status Date / Time No Known Drug Allergies Allergy Verified 12/25/20 13:16 Plan of Treatment: Patient to receive PT OT to help with up in bed, up to chair up to commode and a ssist with use of front wheel walker.Patient to keep splint on until first postop appointment on January 01 at 2:30 PM.Patient to receive Scheduled acetaminophen 650 mg every 4Hours and ibuprofen 600 mg every 6 hours for pain. 81 mg aspirin twice daily DVT prophylaxis for 6 weeks. - Therapies | Activity Additional Instructions: Assistance Devices: Walker Weight Bearing: No Weight (Nonweightbearing on right operative leg, patient can weight-bear nonoperative left leg.) Plan of Treatment: Patient to receive PT OT to help with up in bed, up to chair up to commode and assist with use of front wheel walker.Patient to keep splint on until first postop appointment on January 01 at 2:30 PM.Patient to receive Scheduled acetaminophen 650 mg every 4Hours and ibuprofen 600 mg every 6 hours for pain. 81 mg aspirin twice daily DVT prophylaxis for 6 weeks. Patient has in his initial postop appointment on January 01 at 2:30 PM at the [address] [place] [facility] phone number [phone]"
[2020-12-28] MEDS: ATORVASTATIN 40 MG TABLET PO SCH (21:44)
[2020-12-29] MEDS: SODIUM CHLORIDE FLUSH 0.9% 10 ML SYRINGE IVP SCH ×4 (00:39→08:10)
[2020-12-29] MEDS: METOPROLOL 5 MG/5 ML VIAL IVP PRN (00:39)
[2020-12-29 06:44] LABS: BASOPHILS # (AUTO) 0.1 10^3/uL (0.0-0.1); BASOPHILS % (AUTO) 0.8 %; EOSINOPHILS # (AUTO) 0.4 10^3/uL (0.0-0.7); HCT - HEMATOCRIT 37.9 % (42.0-52.0); LYMPHOCYTES # (AUTO) 1.5 10^3/uL (1.5-3.5); LYMPHOCYTES % (AUTO) 16.8 %; MEAN CORPUSCULAR HEMOGLOBIN 32.5 pg (27.0-31.0); MEAN CORPUSCULAR HGB CONC 31.7 g/dL (32.0-36.0); MEAN CORPUSCULAR VOLUME 102.7 fL (80.0-94.0); MEAN PLATELET VOLUME 10.9 fL (7.4-11.4); MONOCYTES # (AUTO) 0.9 10^3/uL (0.0-1.0); MONOCYTES % (AUTO) 9.6 %; NEUTROPHILS # (AUTO) 6.2 10^3/uL (1.5-6.6); NEUTROPHILS % (AUTO) 68.3 %; PLT - PLATELET COUNT 282 10^3/uL (130-450); RED BLOOD COUNT 3.69 10^6/uL (4.70-6.10); RED CELL DISTRIBUTION WIDTH 13.6 % (12.0-15.0); WHITE BLOOD COUNT 9.2 x10^3/uL (4.8-10.8)
[2020-12-29 07:05] LABS: CALCIUM 8.5 mg/dL (8.5-10.3)
[2020-12-29] MEDS: LEVOTHYROXINE 25 MCG TABLET PO SCH (07:54)
[2020-12-29] MEDS: DIGOXIN 125 MCG TABLET PO SCH (08:08)
[2020-12-29] MEDS: ASPIRIN CHEW 81 MG TABLET PO SCH (08:08)
[2020-12-29] MEDS: IBUPROFEN 600 MG TABLET PO PRN (08:10)
[2020-12-29] MEDS ORDERED: TAMSULOSIN 0.4 MG CAPSULE PO SCH (09:00)
[2020-12-29 13:05] VITALS: BP 110/84
== END 2020-12-29 13:10 | DRG 537 ==
LOC: SDS 09:47 → MS2 14:03
PROVIDERS: ADMIT Physician Assistant; ATTEND Orthopaedic Surgery
PROC: 0LQL0ZZ Repair Right Upper Leg Tendon, Open Approach (ICD-10-PCS; principal; 2020-12-26 11:00)
DX: S76.111A Strain of right quadriceps muscle, fascia and tendon, initial encounter (principal); N13.8 Other obstructive and reflux uropathy; I48.91 Unspecified atrial fibrillation; I10 Essential (primary) hypertension; E03.9 Hypothyroidism, unspecified; W01.0XXA Fall on same level from slipping, tripping and stumbling without subsequent striking against object, initial encounter; Y92.007 Garden or yard of unspecified non-institutional (private) residence as the place of occurrence of the external cause; N40.1 Benign prostatic hyperplasia with lower urinary tract symptoms; Z91.81 History of falling
CPT/HCPCS: 27385; 36415; 80048; 81599; 82533; 84443; 84484; 85025; 87631; 97162; 97166; 97530; A9270; J0690; J7120; 0202U; 80162

== ENCOUNTER 2020-12-29 13:16 | Outpatient (CLI) | payer MEDICARE, OTHER | END 2020-12-29 13:17 | LOC: EMS 13:16 | PROVIDERS: ATTEND Specialist | DX: S76.111D Strain of right quadriceps muscle, fascia and tendon, subsequent encounter (principal) | CPT/HCPCS: A0425; A0428 ==

== ENCOUNTER 2021-01-01 07:00 | Outpatient (CLI) | payer MEDICARE, OTHER ==
[2021-01-01 19:52] LABS: BASOPHILS # (AUTO) 0.1 10^3/uL (0.0-0.1); BASOPHILS % (AUTO) 1.1 %; EOSINOPHILS # (AUTO) 0.3 10^3/uL (0.0-0.7); HCT - HEMATOCRIT 37.2 % (42.0-52.0); HGB - HEMOGLOBIN 11.9 g/dL (14.0-18.0); LYMPHOCYTES # (AUTO) 1.2 10^3/uL (1.5-3.5); LYMPHOCYTES % (AUTO) 20.8 %; MEAN PLATELET VOLUME 10.4 fL (7.4-11.4); MONOCYTES # (AUTO) 0.6 10^3/uL (0.0-1.0); MONOCYTES % (AUTO) 10.2 %; NEUTROPHILS # (AUTO) 3.5 10^3/uL (1.5-6.6); NEUTROPHILS % (AUTO) 61.5 %; PLT - PLATELET COUNT 284 10^3/uL (130-450); RED BLOOD COUNT 3.61 10^6/uL (4.70-6.10); RED CELL DISTRIBUTION WIDTH 13.3 % (12.0-15.0); WHITE BLOOD COUNT 5.7 x10^3/uL (4.8-10.8)
[2021-01-01 20:05] LABS: ALBUMIN 2.7 g/dL (3.2-5.5); ALBUMIN/GLOBULIN RATIO 0.8 (1.0-2.2); BILIRUBIN,TOTAL 0.4 mg/dL (0.2-1.0); CALCIUM 8.3 mg/dL (8.5-10.3); CREATININE 1.2 mg/dL (0.6-1.2); MAGNESIUM 2.2 mg/dL (1.7-2.8); POTASSIUM 3.8 mmol/L (3.5-5.0); TOTAL PROTEIN 6.1 g/dL (6.7-8.2)
[2021-01-01 20:23] LABS: THYROID STIMULATING HORMONE 5.92 uIU/mL (0.34-5.60)
== END 2021-01-01 23:59 | disposition home or self-care (01) ==
LOC: LAB 07:00
DX: D50.0 Iron deficiency anemia secondary to blood loss (chronic) (principal); E03.8 Other specified hypothyroidism; E83.40 Disorders of magnesium metabolism, unspecified; I48.20 Chronic atrial fibrillation, unspecified
CPT/HCPCS: 36415; 80053; 80162; 81599; 83735; 84439; 84443; 85025

== ENCOUNTER 2021-02-08 16:30 | Outpatient (CLI) | payer MEDICARE, OTHER | END 2021-02-08 16:31 | disposition short-term general hospital (02) | LOC: EMS 16:30 | DX: T81.31XA Disruption of external operation (surgical) wound, not elsewhere classified, initial encounter (principal) | CPT/HCPCS: A0425; A0427 ==